=== PATIENT | female | born 1960 | race Caucasian/White ===

== ENCOUNTER 2019-07-21 06:00 | Outpatient (RCR) | payer SELFPAY | END 2019-08-16 00:01 | LOC: SPT 06:00 | PROVIDERS: Family Provider Family Medicine; Visit Provider Family Medicine | DX: H81.10 Benign paroxysmal vertigo, unspecified ear (principal) | CPT/HCPCS: 95992 ×2; 97162 ==

== ENCOUNTER 2020-08-15 11:11 | Outpatient (CLI) | payer SELFPAY ==
--- NOTE | 2020-08-15 11:18 | XR_ITS ---
WS: [id number] Exam: XR chest 2V* [id number] Date/Time of Exam: 08/15/2020 11:28 AM Reason For Exam: CHEST PAIN/ STERNUM AREA Comparison 04/22/2017. Findings: The lungs are clear and fully expanded. Costophrenic angles are sharp. No infiltrates. Bronchovascula r relief appears normal. Cardiac silhouette is unremarkable. Bony elements are intact. XR/XR chest 2V* [id number] IMPRESSION: Unremarkable chest radiograph.
== END 2020-08-15 11:12 | disposition home or self-care (01) ==
LOC: RADWPI 11:15
PROVIDERS: PCP Family Medicine; Visit Provider General Practice
DX: R07.9 Chest pain, unspecified (principal)
CPT/HCPCS: 71046

== ENCOUNTER 2020-08-28 08:04 | Outpatient (CLI) | payer OTHER, SELFPAY ==
--- NOTE | 2020-08-28 08:42 | MM_ITS ---
WS: [id number] BILATERAL SCREENING DIGITAL MAMMOGRAM WITH CAD HISTORY: SCREENING COMPARISON: 04/15/2013 Bilateral CC and MLO views submitted. Computer aided detection analyzed. Breast composition: There are scattered areas of fibroglandular density. No suspicious masses, microc alcifications or architectural distortion. Benign-appearing calcifications in the upper outer quadran t of the LEFT breast. MM/[place] [id number] IMPRESSION: BI-RADS: 2-Benign FOLLOW UP: 1 Year Follow-up
== END 2020-08-28 08:05 | disposition home or self-care (01) ==
PROVIDERS: PCP Family Medicine; Visit Provider Nurse Practitioner Family
DX: Z12.31 Encounter for screening mammogram for malignant neoplasm of breast (principal)
CPT/HCPCS: 77067

== ENCOUNTER 2020-09-19 08:14 | Outpatient (CLI) | payer SELFPAY ==
--- NOTE | 2020-09-19 08:28 | CT_ITS ---
WS: [id number] CT CHEST TECHNIQUE: Noncontrast CT of the chest with coronal and sagittal reformatted images. CLINICAL INFORMATION: SOFT TISSUE MASS ANTERIOR STERNAL AREA COMPARISON: None. DLP: 474.[address] scans at [facility] use at least one of these dose optimization techniques: automat ed exposure control; mA and/or kV adjustment per patient size (includes targeted exams where dose is matched to clinical indication); or iterative reconstruction. FINDINGS:No evidence of soft tissue mass or lesion in the area of concern in the lower sternum. Dana l underlying subcutaneous fat. No cystic or solid lesions in this location. Chronic pleural thickening in the lung apices right greater than left. Noncalcified nodule right uppe r lobe measuring 3.5 mm. Subsegmental atelectasis in the lingula. A few patchy groundglass opacities in the left lower lobe and both lower lobes medially. No mediastinal or hilar lymphadenopathy. Calcified anterior mediastinal and right hilar lymph nodes. No axillary lymphadenopathy. Adrenal glands are normal. Small esophageal hiatal hernia. Normal thoracic spine. CT/CT chest wo con [id number] IMPRESSION: 1. No evidence of soft tissue mass or lesion in the area of concern in the low er sternum. Normal underlying subcutaneous fat. No cystic or solid lesions in t his location. 2. Noncalcified 3.5 mm nodule right upper lobe. Recommend 12 month follow-up. 3. Moderate chronic emphysematous changes. 4. Faint hazy groundglass opacity in the left lower lobe and both lower lobes medially.Correlation for pneumonitis. No focal pneumonia or pleural fluid. 5. Small esophageal hiatal hernia.
== END 2020-09-19 08:15 | disposition home or self-care (01) ==
LOC: RADWPI 08:20
PROVIDERS: PCP Family Medicine; Visit Provider Orthopaedic Surgery Foot and Ankle Surgery
DX: D16.7 Benign neoplasm of ribs, sternum and clavicle (principal); K44.9 Diaphragmatic hernia without obstruction or gangrene; R91.1 Solitary pulmonary nodule
CPT/HCPCS: 71250

== ENCOUNTER → 2020-10-25 09:13 | Outpatient (BNVA) | payer SELFPAY | PROVIDERS: PCP Orthopaedic Surgery Foot and Ankle Surgery; Visit Provider Internal Medicine Pulmonary Disease | DX: R06.00 Dyspnea, unspecified (principal); Z20.822 Contact with and (suspected) exposure to COVID-19 | CPT/HCPCS: 87635 ==

== ENCOUNTER 2020-10-29 07:41 | Outpatient (CLI) | payer SELFPAY ==
--- NOTE | 2020-10-29 11:44 | PFTS_ITS ---
Date of Study:10/29/20 Date of Dictation: 10/29/2020 MECHANICS: Forced vital capacity (FVC) is normal. Forced expiratory volume in one second (FEV1) is normal. FEV1/FVC is normal. Bronchodilator study not performed. FLOW VOLUME LOOP: Normal . LUNG VOLUMES: Total lung capacity (TLC) is reduced to 66%. Residual volume (RV) is normal. Increased RV/TLC 144% suggesting mild air trapping DIFFUSING CAPACITY FOR CARBON MONOXIDE: Moderately reduced 53% . INTERPRETATION: The pulmonary function test reflects mixed pattern. The spirometry is normal. TLC 66% suggestive of mild restriction with increased RV/TLC 144% suggesting mild air trapping. Moderately reduced gas transfer. Please correlate clinically MTDD
== END 2020-10-29 07:42 | disposition home or self-care (01) ==
LOC: RT 07:42
PROVIDERS: PCP Orthopaedic Surgery Foot and Ankle Surgery; Visit Provider Internal Medicine Pulmonary Disease
DX: R06.00 Dyspnea, unspecified (principal)
CPT/HCPCS: 94010; 94726; 94729

== ENCOUNTER 2020-11-14 11:03 | Outpatient (CLI) | payer SELFPAY ==
[2020-11-17 22:03] LABS: 24 Hour Urine Volume 2125 mL; 5-HIAA, 24 Hour Urine 1.7 mg/24 h (<=6.0)
== END 2020-11-14 11:04 | disposition home or self-care (01) ==
LOC: LAB 11:06
PROVIDERS: PCP Orthopaedic Surgery Foot and Ankle Surgery; Visit Provider Internal Medicine Pulmonary Disease
DX: R23.2 Flushing (principal); R61 Generalized hyperhidrosis
CPT/HCPCS: 83497

== ENCOUNTER 2020-11-14 12:59 | Outpatient (CLI) | payer SELFPAY ==
--- NOTE | 2020-11-14 13:30 | USCV_ITS ---
Colleen Norton Age: 60 Gender: F : 1960 Exam Date: 11/14/2020 13:53 Ordering Phys: Mehdi Cagle MD Technologist: Karly Ruiz Exam Location: [facility] Indication: TO ASSESS MV REGURG, PAP, RV FUNCTION, AND TR BP: 124 / 81 HR: 76 Rhythm: Sinus Technical Quality: Adequate MEASUREMENTS (Male / Female) Normal Values 2D ECHO LV Diastolic Diameter PLAX 2.5 cm 4.2 - 5.9 / 3.9 - 5.3 cm LV Systolic Diameter PLAX 1.8 cm IVS Diastolic Thickness 1.7 cm 0.6 - 1.0 / 0.6 - 0.9 cm IVS Systolic Thickness 1.4 cm LVPW Diastolic Thickness 1.1 cm 0.6 - 1.0 / 0.6 - 0.9 cm LVPW Systolic Thickness 1.0 cm LVOT Diameter 2.0 cm LV Ejection Fraction 2D Teich 53.8 % LV Ejection Fraction MOD 2C 55.0 % LV Ejection Fraction 2C AL 60.9 % LA Diameter 3.0 cm LA Width 2.8 cm LA Height 3.5 cm RA Width 3.3 cm RA Height 3.5 cm Aorta at Sinotubular Diameter 2.6 cm M-MODE LV Diastolic Diameter MM 5.3 cm 4.2 - 5.9 / 3.9 - 5.3 cm LV Systolic Diameter MM 3.4 cm LV Ejection Fraction MM Teich 65.1 % IVS Diastolic Thickness MM 0.6 cm 0.6 - 1.0 / 0.6 - 0.9 cm IVS Systolic Thickness MM 1.1 cm LVPW Diastolic Thickness MM 0.6 cm 0.6 - 1.0 / 0.6 - 0.9 cm LVPW Systolic Thickness MM 1.0 cm Aortic Annulus Diameter 2.6 cm LA Ao Ratio MM 1.1 MV E Point Septal Separation 0.7 cm DOPPLER AV Peak Velocity 157.0 cm/s LVOT Peak Velocity 120.0 cm/s AV Area Cont Eq vti 2.1 cm squared AV Area Cont Eq pk 2.4 cm squared MV Area PHT 3.5 cm squared Mitral E to A Ratio 0.8 MV E' Velocity 34.0 cm/s Mitral E to MV E' Ratio 5.9 Mitral E to LV E' Lateral Ratio 5.7 Mitral E to LV E' Septal Ratio 6.1 TR Peak Velocity 89.0 cm/s TR Peak Gradient 3.2 mmHg Right Atrial Pressure 3.0 mmHg Pulmonary Artery Systolic Pressu 6.2 mmHg PV Peak Velocity 84.0 cm/s FINDINGS Left Ventricle Normal left ventricular size, systolic function and wall thickness, with no regional wall motion abnormalities. Left ventricular ejection fraction is estimated at 65-70 %. Normal diastolic function. Right Ventricle Normal right ventricular size and systolic function. Right ventricular systolic pressure 6.2 mmHg. Right Atrium Normal right atrial size. Right atrial pressure estimated at 3 mm Hg. Left Atrium Normal left atrial size. Mitral Valve Structurally normal mitral valve. No mitral valve stenosis. Mild mitral valve regurgitation. Aortic Valve Structurally normal trileaflet aortic valve. No aortic valve stenosis. No aortic valve regurgitation. Tricuspid Valve Structurally normal tricuspid valve. Trace tricuspid valve regurgitation. Pulmonic Valve Pulmonic valve not well visualized. No pulmonary valve stenosis. No significant pulmonary valve regurgitation. Pericardium No pericardial effusion. Aorta Normal size aortic root and proximal ascending aorta. CONCLUSIONS 1. Normal left ventricular size, systolic function and wall thickness, with no regional wall motion abnormalities. Left ventricular ejection fraction is estimated at 65-70 %. Normal diastolic function. 2. Normal right ventricular size and systolic function. 3. Mild mitral valve regurgitation. 4. Normal pulmonary artery pressure. 6. No significant change when compared to previous study dated 04/17/2014. Adriane Flores MD (Electronically Signed) Final Date: 18 November 2020 20:05 S
== END 2020-11-14 13:00 | disposition home or self-care (01) ==
PROVIDERS: PCP Orthopaedic Surgery Foot and Ankle Surgery; Visit Provider Internal Medicine Pulmonary Disease
DX: I34.0 Nonrheumatic mitral (valve) insufficiency (principal)
CPT/HCPCS: 93306

== ENCOUNTER 2020-11-29 18:13 | Emergency (ER) | payer SELFPAY ==
[2020-11-29 18:16] VITALS: BP 146/82; PULSE 106; RESP 16; TEMP 36.1; O2SAT 96; BMI 23.0
[2020-11-29 18:21] VITALS: BP 146/82; PULSE 101; RESP 16; O2SAT 96
--- NOTE | 2020-11-29 18:23 | XRR_ITS ---
PROCEDURE INFORMATION: Exam: XR Left Wrist Exam date and time: 11/29/2020 6:33 PM Age: 60 years old Clinical indication: Injury or trauma; Fall; Blunt trauma (contusions or hematomas); Wrist; Left; Additional info: Fall, wrist pain TECHNIQUE: Imaging protocol: XR Left wrist. Views: 3 or more views. COMPARISON: No relevant prior studies available. FINDINGS: Bones/joints: Normal. Soft tissues: Normal. XR/XR wrist LT min 3V* [id number] IMPRESSION: No acute findings.
--- NOTE | 2020-11-29 18:23 | XRR_ITS ---
PROCEDURE INFORMATION: Exam: XR Left Hand Exam date and time: 11/29/2020 6:33 PM Age: 60 years old Clinical indication: Injury or trauma; Fall; Blunt trauma (contusions or hematomas); Hand; Left; Additional info: Fall, hand pain TECHNIQUE: Imaging protocol: XR Left hand. Views: 3 or more views. COMPARISON: No relevant prior studies available. FINDINGS: Bones/joints: Normal. Soft tissues: Normal. XR/XR hand LT min 3V* [id number] IMPRESSION: No acute findings.
--- NOTE | 2020-11-29 18:31 | W.ED.EXTPRO ---
HPI - Extremity Problem General: Chief complaint: Extremity Injury, Upper Stated complaint: L HAND/WRIST INJURY Time Seen by Provider: 11/29/20 18:21 Source: patient Mode of arrival: ambulatory Limitations: no limitations History of Present Illness: HPI Narrative: 60 year old female presents to the ED with left hand and wrist injury -she reports was carrying items in her left hand and tripped and hit her hand and wrist against the door. He reports pain with movement of the fingers and wrist. Tetanus shot is up-to-date. She denies hitting her head or other injury such as neck pain upon exam. MD Complaint: extremity pain and extremity swelling Onset (ago): hour(s) (1) Pain Consistency: constant Location: left and upper extremity Quality: burning, aching and dull Radiation: proximal Relieving factors: immobilization and rest Exacerbating factors: range of motion Associated symptoms: Reports no associated symptoms; Deny chest pain, fever(s) or rash Review of Systems General: Reports: 10 or more systems reviewed and unremarkable except in HPI and below Const: Denies: fever(s), chills, body aches, fatigue, malaise or diaphoresis Eyes: Denies: blurry vision or eye redness ENMT: Denies: throat pain, dental pain or disequilibrium Card: Denies: chest pain, palpitations or irregular heart rhythm Resp: Denies: dyspnea, productive cough, non-productive cough or wheezing GI: Denies: abdominal pain, nausea or vomiting : Denies: difficulty voiding or dysuria Musc: Reports: joint pain, joint stiffness and limited range of motion; Denies: neck pain or back pain Skin/Breast: Denies: rash, pruritus, erythema, skin tenderness or changes in skin color Neuro: Denies: headache(s), weakness in extremities or behavioral changes Psych: Denies: anxiety, depression, sleeping more or change in appetite Garcia/Lymph: Denies: easy bruising PFSH ED PFSH: Family History Daughter Cancer lung cancer Father Pulmonary fibrosis Social History Smoking and tobacco status: never smoked Second hand smoke exposure: Yes Smoking risk assessment/counseling performed?: Yes Alcohol intake: never Lives independently: Yes Household members: spouse Housing: House Marital status: Current occupational status: retired Pets and animals: Yes History of recent travel: No Current gender identity: Female Physical Exam Const: COMMON NORMALS: no acute distress, patient oriented x3, healthy appearing and alert GENERAL APPEARANCE: cooperative, comfortable and well hydrated HENMT: COMMON NORMALS: normocephalic, Normal external nose present and moist oral mucous membranes HEAD & SCALP: normocephalic NOSE: Normal external nose present Eye: COMMON NORMALS: Equal, round and reactive pupils present and EOMs intact bilaterally GENERAL EYE: appearance normal, both eyes and all related structures PUPIL: Yes Equal, round and reactive pupils present Neck/C-Spine: COMMON NORMALS: full ROM and no lymphadenopathy GENERAL: Yes normal visual inspection and Yes trachea midline CERVICAL SPINE: Yes cervical ROM normal Lymph: LYMPHATIC: no lymphadenopathy noted Chest: COMMONS NORMALS: normal inspection of the chest Resp: COMMON NORMALS: normal respiratory effort and clear to auscultation bilaterally AUSCULTATION: clear to auscultation bilaterally Cardio: COMMON NORMALS: regular rhythm, S1 normal heart sound present and S2 normal heart sound present RHYTHM: regular rhythm HEART SOUNDS: S1 normal heart sound present and S2 normal heart sound present GI: COMMON NORMALS: Soft to palpation and non-tender INSPECTION: Yes normal to inspection PALPATION: Yes Soft to palpation : COMMON NORMALS: Yes no CVA tenderness BLADDER/KIDNEY EXAM: Yes no CVA tenderness Back/Pelvis: COMMON NORMALS: no CVA tenderness and thoracic and lumbar spine normal to inspection Extremity: COMMON NORMALS: normal to inspection, capillary refill normal and no pedal edema GENERAL: Yes normal exam except as noted LEFT UPPER EXTREMITY: Yes wrist (contusion to the medial wrist, tenderness over the radial styloid) and Yes hand & digits Left hand and digits: Yes palpation (pain to the 2nd and 3rd distal MCP), Yes ROM (full flexion/extension to all digits of the left hand) and Yes neurovascular exam (distally intact) Neuro: COMMON NORMALS: patient oriented x3 and no focal motor deficits SENSORIUM/ORIENTATION: Yes alert Psych: COMMON NORMALS: mental status grossly normal, Normal thought process present and cooperative ACTIVITY/MOTOR BEHAVIOR: Yes appropriate eye contact THOUGHT PROCESS: Normal thought process present Skin: COMMON NORMALS: no rashes or lesions noted and turgor normal GENERAL SKIN EXAM: no rashes or lesions noted, elasticity normal and turgor normal TRAUMA: abrasion (over the 2nd and 3rd distal MCP) Course Vital Signs: Vital signs: Vital Signs Temperature 97.0 F L 11/29/20 18:16 Pulse Rate 93 11/29/20 20:25 Respiratory Rate 18 11/29/20 20:25 Blood Pressure 146/84 11/29/20 20:25 Pulse Oximetry 99 11/29/20 20:25 MDM - Extremity (Nontraumatic) Imaging Data^: Xray Ortho: Radiologist's impression: [facility] [address] [place] [address] XRay Report Signed Patient: Colleen Norton Unit #: [id number] : 1960 Age/Sex: 60 / F ADM Date: 11/29/20 Loc: ER Room/Bed: Attending Dr: Ordering Provider/Ordering MD: Constance Bower Date of Service: 11/29/20 Procedure(s): XR hand LT min 3V* [id number] Accession Number(s): [id number] Report Number: [id number] PROCEDURE INFORMATION: Exam: XR Left Hand Exam date and time: 11/29/2020 6:33 PM Age: 60 years old Clinical indication: Injury or trauma; Fall; Blunt trauma (contusions or hematomas); Hand; Left; Additional info: Fall, hand pain TECHNIQUE: Imaging protocol: XR Left hand. Views: 3 or more views. COMPARISON: No relevant prior studies available. FINDINGS: Bones/joints: Normal. Soft tissues: Normal. XR/XR hand LT min 3V* [id number] IMPRESSION: No acute findings. Dictated By: Eb Sanchez Signed By: Eb Sanchez Signed Date/Time: 11/29/201918 DD/ 17 Other Imaging: Radiologist's impression: [facility] [address] [place] [address] 42486 XRay Report Signed Patient: Colleen Norton Unit #: [id number] : 1960 Age/Sex: 60 / F ADM Date: 11/29/20 Loc: ER Room/Bed: Attending Dr: Ordering Provider/Ordering MD: Constance Bower Date of Service: 11/29/20 Procedure(s): XR wrist LT min 3V* [id number] Accession Number(s): [id number] Report Number: [id number] PROCEDURE INFORMATION: Exam: XR Left Wrist Exam date and time: 11/29/2020 6:33 PM Age: 60 years old Clinical indication: Injury or trauma; Fall; Blunt trauma (contusions or hematomas); Wrist; Left; Additional info: Fall, wrist pain TECHNIQUE: Imaging protocol: XR Left wrist. Views: 3 or more views. COMPARISON: No relevant prior studies available. FINDINGS: Bones/joints: Normal. Soft tissues: Normal. XR/XR wrist LT min 3V* [id number] IMPRESSION: No acute findings. Dictated By: Eb Sanchez Signed By: Eb Sanchez Signed Date/Time: 11/29/201919 DD/ 18 Discharge Plan Discharge Patient Disposition: Home Clinical Impression: Contusion of hand Qualifiers: Encounter type: initial encounter Laterality: left Qualified Code(s): S60.222A - Contusion of left hand, initial encounter Contusion of left wrist Qualifiers: Encounter type: initial encounter Qualified Code(s): S60.212A - Contusion of left wrist, initial encounter Condition: Stable Prescriptions: No Action levothyroxine [Synthroid] 100 mcg tablet 100 mcg PO DAILY RF: 0 magnesium citrate 100 mg capsule 200 mg PO BID RF: 0 Anoro Ellipta 62.5-25 mcg/actuation blister with device 1 inh inhalation DAILY RF: 0 trazodone 50 mg tablet 50 mg PO DAILY RF: 0 benzonatate 200 mg capsule 200 mg PO TID PRNRF: 0 tramadol 50 mg tablet 50 mg PO BID PRNRF: 0 cyclobenzaprine 10 mg tablet 10 mg PO TID PRNRF: 0 Discharge Orders: Discharge ED (Routine); Ordered 11/29/20 Ordered By: Constance Bower Referrals: Himanshu Adorno MD [Primary Care Provider] - Discharge Diet: Advance as tolerated Discharge Activity: Limit activity as instructed Patient Instructions: Contusion in Adults (ED), Splint Care (ED), Abrasion (ED), Opioid Safety Activity Restrictions/Additional Instructions: cleanse wound with soap and water daily follow up with your primary care provider next week if pain continues Use the left wrist and left hand as pain will allow Tylenol/ibuprofen as needed for pain Coding Level of Care Code ED Convention Services Manager for Denys Fwalaina Exam Comprehensive
[2020-11-29] MEDS: acetaminophen 325 mg Tablet 650 MG PO (18:32)
[2020-11-29 20:25] VITALS: BP 146/84; PULSE 93; RESP 18; O2SAT 99
== END 2020-11-29 20:27 | disposition home or self-care (01) ==
PROVIDERS: Emergency Provider Nurse Practitioner Family; PCP Orthopaedic Surgery Foot and Ankle Surgery
DX: S60.212A Contusion of left wrist, initial encounter (principal); S60.222A Contusion of left hand, initial encounter; Z77.22 Contact with and (suspected) exposure to environmental tobacco smoke (acute) (chronic); W18.49XA Other slipping, tripping and stumbling without falling, initial encounter
CPT/HCPCS: 29125; 73110; 73130; 99283

== ENCOUNTER 2021-03-28 18:38 | Outpatient (REF) | payer SELFPAY ==
[2021-03-28 20:31] LABS: Thyroid Stimulating Hormone 0.05 uIU/mL (0.27-4.20)
== END 2021-03-28 18:39 | disposition home or self-care (01) ==
LOC: LAB 18:38
PROVIDERS: PCP Orthopaedic Surgery Foot and Ankle Surgery; Visit Provider Nurse Practitioner Family
DX: E03.9 Hypothyroidism, unspecified (principal)
CPT/HCPCS: 84443

== ENCOUNTER 2021-09-05 13:07 | Outpatient (CLI) | payer MEDICAID, SELFPAY ==
[2021-09-05 13:46] LABS: Basophils % 0.3 %; Eosinophils # 0.1 10^3/uL (0.0-0.8); Hematocrit 45.4 % (37.0-47.0); Hemoglobin 14.9 g/dL (11.5-15.3); Lymphocytes # 2.2 10^3/uL (0.8-4.8); Lymphocytes % 27.9 %; Mean Corpuscular HGB Conc 32.8 g/dL (30.0-36.0); Mean Corpuscular Hemoglobin 28.4 pg (28.0-34.0); Mean Corpuscular Volume 86.6 fl (81-99); Monocytes # 0.4 10^3/uL (0.2-0.9); Monocytes % 5.7 %; Neutrophils # 5.03 10^3/uL (1.8-7.7); Neutrophils % 64.8 %; Nucleated Red Blood Cells % 0 %; Platelet Count 308 10^3/cmm (130-400); Red Blood Count 5.24 10^6/uL (4.1-5.3); Red Cell Distribution Width 12.6 % (12.1-15.1); White Blood Count 7.8 10^3/uL (4.0-10.0)
[2021-09-06 11:53] LABS: Alpha 1 Antitrypsin 151 mg/dL (83-199)
[2021-09-06 14:33] LABS: Alternaria Alternata (M6) Ige <0.10 kU/L; Alternaria Class 0; Bermuda Class 0; Bermuda Grass (G2) Ige <0.10 kU/L; Cat Dander (E1) Ige <0.10 kU/L; Cat Dander Class 0; Common Ragweed (Short) (W1) Ig <0.10 kU/L; D. Farinae Class 0; Dermatophagoides Class 0; Dermatophagoides Farinae (D2) <0.10 kU/L; Dermatophagoides Pteronyssinus <0.10 kU/L; Dog Dander (E5) Ige <0.10 kU/L; Dog Dander Class 0; Elm (T8) Ige <0.10 kU/L; Elm Class 0; English Plantain (W9) Ige <0.10 kU/L; English Plantain Class 0; House Dust (Greer) (H1) Ige <0.10 kU/L; House Dust (Hollister- Stier) <0.10 kU/L; House Dust Class 0; Immunoglobulin E 16 kU/L (<OR=114); Immunoglobulin E 18 kU/L (<OR=114); Johnson Grass (G10) Ige <0.10 kU/L; Johnson Grass Cl 0; June Grass Class 0; June Grass(Kentucky Blue) (G8) <0.10 kU/L; Lamb'S Quarters (Goose Foot) <0.10 kU/L; Lamb'S Quarters Class 0; Maple (Box Elder) (T1) Ige <0.10 kU/L; Maple Class 0; Meadow Fescue (G4) Ige <0.10 kU/L; Meadow Fescue Class 0; Mucor Racemosus Class 0; Oak (T7) Ige <0.10 kU/L; Oak Class 0; Orchard Grass (Cocksfoot) (G3) <0.10 kU/L; Penicillium Class 0; Penicillium Notatum (M1) Ige <0.10 kU/L; Perennial Rye Grass (G5) Ige <0.10 kU/L; Perennial Rye Grass Class 0; Ragweeed Class 0; Rough Marsh Elder (W16) Ige <0.10 kU/L; Rough Marsh Elder Class 0; Sweet Vernal Class 0; Sweet Vernal Grass (G1) Ige <0.10 kU/L; Timothy Grass (G6) Ige <0.10 kU/L; Timothy Grass Class 0
== END 2021-09-05 13:08 | disposition home or self-care (01) ==
LOC: LAB 13:19
PROVIDERS: PCP Family Medicine; Visit Provider Internal Medicine Pulmonary Disease
DX: R06.02 Shortness of breath (principal); R91.1 Solitary pulmonary nodule; J43.9 Emphysema, unspecified
CPT/HCPCS: 36415; 82103; 82785; 85025; 86003

== ENCOUNTER 2021-10-25 07:46 | Outpatient (CLI) | payer MEDICAID, OTHER, SELFPAY ==
--- NOTE | 2021-10-25 08:06 | MM_ITS ---
WS: [id number] BILATERAL SCREENING 3D TOMOSYNTHESIS DIGITAL MAMMOGRAM WITH CAD HISTORY: SCREENING COMPARISON: 08/28/2020, 04/15/2013 Bilateral CC and MLO views submitted. Computer aided detection analyzed. Breast composition: There are scattered areas of fibroglandular density. No suspicious masses, microc alcifications or architectural distortion. Benign-appearing calcifications in the upper-outer quadran t LEFT breast. MM/[place] [id number] IMPRESSION: BI-RADS: 2-Benign FOLLOW UP: 1 Year Follow-up
== END 2021-10-25 07:47 | disposition home or self-care (01) ==
PROVIDERS: PCP Family Medicine; Visit Provider Nurse Practitioner Family
DX: Z12.31 Encounter for screening mammogram for malignant neoplasm of breast (principal)
CPT/HCPCS: 77063; 77067

== ENCOUNTER → 2021-11-05 11:39 | Outpatient (BNVA) | payer MEDICAID, SELFPAY | PROVIDERS: PCP Family Medicine; Visit Provider Internal Medicine Pulmonary Disease | DX: Z20.822 Contact with and (suspected) exposure to COVID-19 (principal) | CPT/HCPCS: 87635 ==

== ENCOUNTER 2021-11-14 07:22 | Outpatient (CLI) | payer MEDICAID, SELFPAY ==
--- NOTE | 2021-11-14 14:31 | PFTS_ITS ---
Date of Study:11/14/21 Date of Dictation: MECHANICS: Forced vital capacity (FVC) is normal. Forced expiratory volume in one second (FEV1) is normal. FEV1/FVC is normal. FLOW VOLUME LOOP: Normal. LUNG VOLUMES: Total lung capacity (TLC) is normal. Residual volume (RV) is normal. DIFFUSING CAPACITY FOR CARBON MONOXIDE: Normal. INTERPRETATION: The prebronchodilator spirometry is normal. No postbronchodilator spirometry was performed. Lung volumes are normal. Gas exchange (DLCO) is normal. MTDD
== END 2021-11-14 07:23 | disposition home or self-care (01) ==
LOC: RT 07:24
PROVIDERS: PCP Family Medicine; Visit Provider Internal Medicine Pulmonary Disease
DX: R91.1 Solitary pulmonary nodule (principal); J43.9 Emphysema, unspecified
CPT/HCPCS: 94010; 94618; 94726; 94729

== ENCOUNTER → 2021-12-20 08:25 | Outpatient (BNVA) | payer MEDICAID, SELFPAY | PROVIDERS: PCP Family Medicine; Visit Provider Internal Medicine Pulmonary Disease | DX: R91.1 Solitary pulmonary nodule (principal); J43.9 Emphysema, unspecified; R06.02 Shortness of breath; J98.4 Other disorders of lung; E03.9 Hypothyroidism, unspecified; R61 Generalized hyperhidrosis; R23.2 Flushing; R06.00 Dyspnea, unspecified | CPT/HCPCS: 36415; 84439; 84443; 99214 ==

== ENCOUNTER 2022-01-23 08:44 | Outpatient (CLI) | payer MEDICAID, SELFPAY ==
--- NOTE | 2022-01-23 09:00 | CT_ITS ---
WS: [id number] CT CHEST TECHNIQUE: Noncontrast CT of the chest with coronal and sagittal reformatted images. CLINICAL INFORMATION: follow up on lung nodule COMPARISON: CT chest September 19, 2020 DLP: [address] scans at [facility] use at least one of these dose optimization techniques: automated e xposure control; mA and/or kV adjustment per patient size (includes targeted exams where dose is matc hed to clinical indication); or iterative reconstruction. FINDINGS: Previously described 3.5 mm nodule RIGHT upper lobe is unchanged. No other suspicious pulmonary paren chymal opacities. Moderate chronic emphysematous changes. Chronic pleural thickening in the lung apic es. No mediastinal or hilar lymphadenopathy. Calcified anterior mediastinal and hilar lymph nodes. No axi llary lymphadenopathy. Small esophageal hiatal hernia. Adrenal glands are normal. CT/CT chest wo con [id number] IMPRESSION: 1. Stable tiny 3.5 mm nodule RIGHT upper lobe. 2. No other significant changes compared to previous. 3. No acute pulmonary infiltrates. 4. No other significant findings.
== END 2022-01-23 08:45 | disposition home or self-care (01) ==
LOC: RAD 08:47
PROVIDERS: PCP Family Medicine; Visit Provider Internal Medicine Pulmonary Disease
DX: J98.4 Other disorders of lung (principal); R91.1 Solitary pulmonary nodule; J43.9 Emphysema, unspecified
CPT/HCPCS: 71250

== ENCOUNTER → 2022-04-01 09:41 | Outpatient (BNVA) | payer MEDICAID, SELFPAY | PROVIDERS: PCP Family Medicine; Visit Provider Family Medicine | DX: E03.9 Hypothyroidism, unspecified (principal); I34.0 Nonrheumatic mitral (valve) insufficiency; J43.9 Emphysema, unspecified | CPT/HCPCS: 80053; 80061; 84443 ==

== ENCOUNTER → 2022-06-26 08:18 | Outpatient (BNVA) | payer MEDICAID, SELFPAY | PROVIDERS: PCP Family Medicine; Visit Provider Clinical Nurse Specialist Adult Health | DX: L29.9 Pruritus, unspecified (principal) | CPT/HCPCS: 82306; 82607 ==

== ENCOUNTER → 2022-10-06 08:11 | Outpatient (BNVA) | payer MEDICAID, SELFPAY | PROVIDERS: PCP Family Medicine; Visit Provider Family Medicine | DX: E53.8 Deficiency of other specified B group vitamins (principal); E55.9 Vitamin D deficiency, unspecified | CPT/HCPCS: 82306; 82607 ==

== ENCOUNTER → 2022-10-09 12:35 | Outpatient (BNVA) | payer MEDICAID, SELFPAY | PROVIDERS: PCP Family Medicine; Visit Provider Family Medicine | DX: R07.89 Other chest pain (principal); F39 Unspecified mood [affective] disorder; E03.9 Hypothyroidism, unspecified | CPT/HCPCS: 84443 ==

== ENCOUNTER 2022-10-10 09:38 | Outpatient (CLI) | payer MEDICAID, SELFPAY ==
--- NOTE | 2022-10-10 09:56 | XR_ITS ---
WS: [id number] BILATERAL RIBS, MULTIPLE VIEWS WITH PA CHEST HISTORY: attention anterior ribs 2-4 at sternal border. COMPARISON: Chest CT 01/23/2022, prior chest radiograph 08/15/2020 Lungs and mediastinum: Mild pulmonary hyperinflation. Mild biapical pleural thickening. No mass or pn eumonia. Small calcified RIGHT hilar lymph node. Normal size heart. Ribs: No rib fractures are identified. No destructive bone process. No callus formation or fracture. Visualized spine is negative. XR/XR ribs BI mn 4V w CXR1V [id number] IMPRESSION: No acute or chronic rib abnormalities.
== END 2022-10-10 09:39 | disposition home or self-care (01) ==
PROVIDERS: PCP Family Medicine; Visit Provider Family Medicine
DX: R07.89 Other chest pain (principal)
CPT/HCPCS: 71111

== ENCOUNTER 2022-11-10 08:25 | Outpatient (CLI) | payer MEDICAID, SELFPAY ==
--- NOTE | 2022-11-10 09:10 | XR_ITS ---
WS: [id number] Exam: XR chest 2V* [id number] Date/Time of Exam: 11/10/2022 9:26 AM Reason For Exam: f/u lung nodule, cxr required by insurance for CT PA Comparison 10/10/2022. The lungs are hyperinflated and clear. Normal cardiomediastinal silhouette. No pleural effusions. Mil d bilateral apical pleural thickening. Regional bony elements are intact. XR/XR chest 2V* [id number] IMPRESSION: 1. Pulmonary hyperinflation which may indicate obstructive lung disease. 2. No acute cardiopulmonary process.
[2022-11-10 09:27] LABS: Miscellaneous Test See Scanned Lab Rpt
== END 2022-11-10 08:26 | disposition home or self-care (01) ==
PROVIDERS: PCP Family Medicine; Visit Provider Internal Medicine Pulmonary Disease
DX: R91.1 Solitary pulmonary nodule (principal)
CPT/HCPCS: 36415; 71046

== ENCOUNTER 2023-01-26 08:59 | Outpatient (CLI) | payer MEDICAID, SELFPAY ==
--- NOTE | 2023-01-26 10:00 | CT_ITS ---
WS: [id number] CT chest wo con [id number] HISTORY: 1 year f/u Ct chest for pulmonary nodule TECHNIQUE: Axial imaging performed through the thorax. Coronal and sagittal reformats are submitted. All CT scans at [facility] use at least one of these dose optimization techniques: automated exposure control; mA and/or kV adjustment per patient size (includes targeted exams where dose is mat ched to clinical indication); or iterative reconstruction. CONTRAST: None DLP: 162.73 mGy.cm COMPARISON: 01/23/2022, 09/19/2020 Lungs and central airway: No interval change in the 4 mm noncalcified nodule RIGHT upper lobe. No new pulmonary nodule or mass. No pneumonia. Pleura: Normal. No pleural effusion. Heart and pericardium: Normal size heart with no pericardial effusion. Mediastinum and jarrett: No mediastinum or hilar adenopathy. Calcified RIGHT paratracheal lymph node. Vessels: Normal size aortic and pulmonary artery. No coronary artery calcifications. Chest wall and lower neck: No soft tissue masses. Upper abdomen: Small hiatal hernia. No adrenal mass. Osseous structures: No destructive process. CT/CT chest wo con [id number] IMPRESSION: 1. Stable 4 mm, noncalcified nodule RIGHT upper lobe since 09/19/2020. No additi onal follow-up necessary. 2. No new pulmonary nodules or adenopathy. 3. Small hiatal hernia.
== END 2023-01-26 09:00 | disposition home or self-care (01) ==
LOC: RAD 08:59
PROVIDERS: PCP Family Medicine; Visit Provider Internal Medicine Pulmonary Disease
DX: R91.1 Solitary pulmonary nodule (principal); K44.9 Diaphragmatic hernia without obstruction or gangrene
CPT/HCPCS: 71250

== ENCOUNTER → 2023-05-28 13:43 | Outpatient (BNVA) | payer MEDICAID, SELFPAY | PROVIDERS: PCP Family Medicine; Visit Provider Nurse Practitioner Family | DX: M25.561 Pain in right knee (principal) | CPT/HCPCS: 73562 ==

== ENCOUNTER → 2023-07-15 11:22 | Outpatient (BNVA) | payer MEDICAID, SELFPAY | PROVIDERS: PCP Family Medicine; Visit Provider Nurse Practitioner Family | DX: M53.3 Sacrococcygeal disorders, not elsewhere classified (principal); M54.50 Low back pain, unspecified; M54.2 Cervicalgia | CPT/HCPCS: 72040; 72100; 72220 ==

== ENCOUNTER → 2023-09-09 09:19 | Outpatient (BNVA) | payer MEDICAID, SELFPAY | PROVIDERS: PCP Family Medicine; Visit Provider Family Medicine | DX: E03.9 Hypothyroidism, unspecified (principal); K52.89 Other specified noninfective gastroenteritis and colitis | CPT/HCPCS: 80053; 83516; 84443; 85025; 86003 ==

== ENCOUNTER 2024-01-09 06:54 | Emergency (ER) | payer SELFPAY ==
[2024-01-09 07:01] VITALS: BP 128/62; PULSE 78; RESP 16; O2SAT 100
--- NOTE | 2024-01-09 07:01 | XRR_ITS ---
PROCEDURE INFORMATION: Exam: XR Left Foot Exam date and time: 01/09/2024 7:09 AM Age: 63 years old Clinical indication: Injury or trauma; Other: Nail; Puncture; Foot; Left; Without foreign body; Additional info: Injury, stepped on nail TECHNIQUE: Imaging protocol: Radiologic exam of the left foot. Views: 3 or more views. COMPARISON: No relevant prior studies available. FINDINGS: Bones/joints: No acute fracture or malalignment. Joint spaces are maintained. Soft tissues: No subcutaneous emphysema or radiopaque foreign bodies. XR/XR foot LT min 3V* [id number] IMPRESSION: No acute fracture or malalignment. No subcutaneous emphysema or radiopaque foreign bodies.
--- NOTE | 2024-01-09 07:03 | W.ED.EXTPRO ---
HPI - Extremity Problem General: Chief complaint: Extremity Injury, Lower Stated complaint: Left foot injury Time Seen by Provider: 01/09/24 06:58 Source: patient Mode of arrival: ambulatory Limitations: no limitations History of Present Illness: 63-year-old female states she had stepped on a nail yesterday did go through her shoe states she has had increased pain today some erythema to that foot. Last tetanus was in 2017 she states the pain down her sharp she rates it a 5 out of 10. Denies any other injuries Associated symptoms: Deny chest pain, fever(s) or rash Review of Systems Const: Denies: fever(s), chills, body aches or change in appetite ENMT: Denies: throat pain or dental pain Card: Denies: chest pain Resp: Denies: dyspnea GI: Denies: abdominal pain, nausea, vomiting or diarrhea Musc: Denies: neck pain or back pain Skin/Breast: Denies: rash Neuro: Denies: headache(s) All/Imm: Denies: urticaria PFSH ED PFSH: Medical History Vitamin B12 deficiency Hypothyroid Mitral valve regurgitation Lung nodule < 6cm on CT Emphysema lung Family History Daughter Cancer lung cancer Father Pulmonary fibrosis Social History Smoking and tobacco/nicotine status: never used tobacco/nicotine Second hand smoke exposure: Yes Alcohol intake: never Substance/Drug Use: never Lives independently: Yes Household members: spouse Housing: House Marital status: Current occupational status: retired Pets and animals: Yes Do you think of yourself as: Straight/Heterosexual Current gender identity: Female Physical Exam Const: COMMON NORMALS: no acute distress, patient oriented x3 and healthy appearing HENMT: COMMON NORMALS: normocephalic and atraumatic HEAD & SCALP: normocephalic and atraumatic Neck/C-Spine: COMMON NORMALS: full ROM and supple Chest: COMMONS NORMALS: normal inspection of the chest Resp: COMMON NORMALS: normal respiratory effort Extremity: COMMON NORMALS: full ROM NARRATIVE EXTREMITY EXAM: Puncture wound noted to plantar surface of left foot does have some slight erythema Neuro: COMMON NORMALS: patient oriented x3, moves all extremities and no focal motor deficits Psych: COMMON NORMALS: mental status grossly normal, Normal thought process present and cooperative THOUGHT PROCESS: Normal thought process present Skin: COMMON NORMALS: no rashes or lesions noted and no wounds GENERAL SKIN EXAM: no rashes or lesions noted Course Vital Signs: Vital signs: Vital Signs Pulse Rate 78 01/09/24 07:01 Respiratory Rate 16 01/09/24 07:01 Blood Pressure 128/62 01/09/24 07:01 Pulse Oximetry 100 01/09/24 07:01 Oxygen Delivery Me thod Room Air 01/09/24 07:01 MDM - Extremity (Nontraumatic) Medical Decision Making Patient presents for puncture wound to left foot patient was seen by podiatry Dr. Scruggs he is going to follow-up in clinic on Thursday we will start on antibiotics she has any worsening symptoms she is to return she understands agrees to plan. Medical Records I reviewed the patient's medical records. Lab Data I reviewed the patient's lab results. 01/09/24 08:10 Radiology Impressions Foot X-Ray 01/09/24 07:01 IMPRESSION: No acute fracture or malalignment. No subcutaneous emphysema or radiopaque foreign bodies. Laboratory Results WBC 5.38 10^3/uL (3.29-11.43) 01/09/24 08:10 RBC 4.26 10^6/uL (3.85-5.65) 01/09/24 08:10 Hgb 12.50 g/dL (11.27-16.99) 01/09/24 08:10 Hct 38.5 % (36-47) 01/09/24 08:10 MCV 90.4 fl (85-98) 01/09/24 08:10 MCH 29.3 pg (27-33) 01/09/24 08:10 MCHC 32.5 g/dL (30-55) 01/09/24 08:10 RDW 13.2 % (12.1-15.1) 01/09/24 08:10 Plt Count 230 10^3/cmm (157-399) 01/09/24 08:10 MPV 8.7 fL (7.4-10.4) 01/09/24 08:10 Neut % (Auto) 57.8 % 01/09/24 08:10 Lymph % (Auto) 32.9 % 01/09/24 08:10 [place] % (Auto) 7.2 % 01/09/24 08:10 Eos % (Auto) 1.5 % 01/09/24 08:10 Baso % (Auto) 0.4 % 01/09/24 08:10 Neut # (Auto) 3.11 10^3/uL (1.8-7.7) 01/09/24 08:10 Lymph # (Auto) 1.8 10^3/uL (0.8-4.8) 01/09/24 08:10 [place] # (Auto) 0.4 10^3/uL (0.2-0.9) 01/09/24 08:10 Eos # (Auto) 0.1 10^3/uL (0.0-0.8) 01/09/24 08:10 Baso # (Auto) 0.0 10^3/uL (0.0-0.1) 01/09/24 08:10 Nucleated RBC % (auto) 0 % 01/09/24 08:10 Nucleated RBCs # 0.0 /100WBC 01/09/24 08:10 ESR 7 mm/hr (0-15) 01/09/24 08:10 C-Reactive Protein 8.9 mg/L (0.0-4.9) H 01/09/24 08:10 All radiology interpretation(s) finalized by discharge Discharge Plan Discharge Patient Disposition: Home Clinical Impression: Puncture wound of foot Condition: Stable Prescriptions: New Augmentin 500-125 mg tablet 1 tab PO BID Qty: 14 0RF No Action Azo Urinary Pain Relief 99.5 mg tablet 99.5 mg PO TID PRN metronidazole 0.75 % cream 1 applic topical DAILY prednisone 20 mg tablet 20 mg PO DAILY Qty: 5 0RF triamcinolone acetonide 0.1 % cream 1 applic topical BID Qty: 30 1RF prednisone 20 mg tablet See Rx Instructions PO BID Qty: 10 0RF Rx Instructions: 2 po qday x 2 days, then 1 po qday x 8 days. prednisone 20 mg tablet 20 mg PO DAILY Qty: 14 0RF pantoprazole 40 mg tablet,delayed release (DR/EC) 40 mg PO DAILY Qty: 30 1RF fluconazole 100 mg tablet 100 mg PO DAILY Qty: 7 0RF cholecalciferol (vitamin D3) 125 mcg (5,000 unit) capsule 125 mcg PO DAILY Qty: 90 0RF mecobalamin (vitamin B12) 1,000 mcg tablet,chewable 1,000 mcg PO DAILY Qty: 90 0RF cyclobenzaprine 10 mg tablet 10 mg PO TID PRN (Reason: muscle spasm) Qty: 30 0RF levothyroxine 88 mcg capsule 88 mcg PO DAILY Qty: 90 3RF ondansetron HCl 4 mg tablet 4 mg PO Q8H PRN (Reason: nausea and vomiting) Qty: 30 3RF nitrofurantoin macrocrystal 100 mg capsule See Rx Instructions PO BID Qty: 30 3RF Rx Instructions: 1 cap po post coitus escitalopram oxalate 5 mg tablet 5 mg PO DAILY Qty: 90 1RF Discharge Orders: Discharge ED (Routine); Ordered 01/09/24 Ordered By: Michelle Pardo Referrals: Ion Scruggs DPM [Physician] - 1-3 days Marko Medina DO [Primary Care Provider] - Discharge Diet: Advance as tolerated Discharge Activity: Resume usual activity and Limit activity as instructed Patient Instructions: Puncture Wound (ED) Activity Restrictions/Additional Instructions: Instructions from Dr. Scruggs D.P.M. Please keep your left foot clean and dry and avoid getting wet when bathing. Once daily dressing change with Hydrofera Blue Heel touch for transfers at this time with postop shoe left foot Follow-up in podiatry clinic at [facility] with Dr. Scruggs January 12, 2024 at 11:30 AM Coding Level of Care Code ED Adaptive Physical Education Specialist for Chg Doug
[2024-01-09] MEDS: HYDROcodone-acetaminophen 5-325 mg Tablet 1 TAB PO (07:12)
[2024-01-09] MEDS: tetanus-dipt-pertussis 0.5 mL SDV IM (07:13)
[2024-01-09 08:00] VITALS: TEMP 36.6
[2024-01-09 08:16] LABS: Basophils % 0.4 %; Eosinophils # 0.1 10^3/uL (0.0-0.8); Eosinophils % 1.5 %; Hematocrit 38.5 % (36-47); Lymphocytes # 1.8 10^3/uL (0.8-4.8); Lymphocytes % 32.9 %; Mean Corpuscular HGB Conc 32.5 g/dL (30-55); Mean Corpuscular Hemoglobin 29.3 pg (27-33); Mean Corpuscular Volume 90.4 fl (85-98); Mean Platelet Volume 8.7 fL (7.4-10.4); Monocytes # 0.4 10^3/uL (0.2-0.9); Monocytes % 7.2 %; Neutrophils # 3.11 10^3/uL (1.8-7.7); Neutrophils % 57.8 %; Nucleated Red Blood Cells % 0 %; Platelet Count 230 10^3/cmm (157-399); Red Blood Count 4.26 10^6/uL (3.85-5.65); Red Cell Distribution Width 13.2 % (12.1-15.1); White Blood Count 5.38 10^3/uL (3.29-11.43)
--- NOTE | 2024-01-09 08:23 | P.CONIM_ITS ---
Providers/Reason For Consult 2 Consulting Physician/Specialty*: Dr. Goodman Manning/podiatry Reason for Consult*: puncture wound left foot Primary Care Provider: Marko Medina DO History of Present Illness History of Present Illness Colleen Norton is a 63 year old female stepped on a nail 01/08/2024 states that the nail was dirty, received updated tetanus in the emergency department today. Presents to the emergency department with her due to redness and pain at the left foot. Review of Systems 2 General: Reports: 10 or more systems reviewed and unremarkable except in HPI and below Const: Denies: fever(s) or chills Eyes: Denies: change in vision Card: Denies: chest pain or palpitations Resp: Denies: dyspnea or productive cough GI: Denies: abdominal pain, nausea or vomiting : Denies: flank pain Musc: Reports: extremity swelling, joint stiffness and deformity Skin/Breast: Reports: erythema, sores, changes in skin color, dry skin, nail changes and change in hair Neuro: Reports: difficulty walking; Denies: numbness in extremities or sensory changes Psych: Denies: suicidal ideation Endo: Denies: change in body appearance Garcia/Lymph: Denies: tender lymph nodes Medications/Allergies Home Medications Medication Instructions Recorded Confirmed Last Taken Type metronidazole 0.75 % topical cream 1 applic topical DAILY 12/20/21 01/12/24 Unknown History phenazopyridine 99.5 mg tablet 99.5 mg PO TID PRN 12/20/21 01/12/24 Unknown History (Azo Urinary Pain Relief) triamcinolone acetonide 0.1 % 1 applic topical BID #30 grams 06/26/22 01/12/24 Unknown Rx topical cream cholecalciferol (vitamin D3) 125 125 mcg PO DAILY #90 caps 06/27/22 01/12/24 Unknown Rx mcg (5,000 unit) capsule mecobalamin (vitamin B12) 1,000 1,000 mcg PO DAILY #90 tabs 06/27/22 01/12/24 Unknown Rx mcg chewable tablet cyclobenzaprine 10 mg tablet 10 mg PO TID PRN muscle spasm #30 05/18/23 01/12/24 Unknown Rx tabs levothyroxine 88 mcg capsule 88 mcg PO DAILY #90 caps 05/18/23 01/12/24 Unknown Rx nitrofurantoin macrocrystal 100 mg See Rx Instructions PO BID #30 caps 09/21/23 01/12/24 Unknown Rx capsule fluconazole 100 mg tablet 100 mg PO DAILY candidiasis #7 tabs 11/02/23 01/12/24 Unknown Rx escitalopram oxalate 5 mg tablet 5 mg PO DAILY mood #90 tabs 11/30/23 01/12/24 Unknown Rx amoxicillin 500 mg-potassium 1 tab PO BID #14 tabs 01/12/24 01/12/24 Unknown Rx clavulanate 125 mg tablet (Augmentin) Allergies Allergy/AdvReac Type Severity Reaction Status Date / Time codeine Allergy Unknown Verified 01/12/24 08:35 levofloxacin [From Levaquin] Allergy Unknown Verified 01/12/24 08:35 Sulfa (Sulfonamide Allergy Unknown Verified 01/12/24 08:35 Antibiotics) zolpidem [From Ambien] Allergy Unknown Verified 01/12/24 08:35 ibuprofen AdvReac Intermediate gastritis, Verified 01/12/24 08:35 GI bleeding PFSH Acute 2 PFSH: Medical History Vitamin B12 deficiency Hypothyroid Mitral valve regurgitation Lung nodule < 6cm on CT Emphysema lung Family History Daughter Cancer lung cancer Father Pulmonary fibrosis Social History Smoking and tobacco/nicotine status: never used tobacco/nicotine Second hand smoke exposure: Yes Alcohol intake: never Substance/Drug Use: never Lives independently: Yes Household members: spouse Housing: House Marital status: Current occupational status: retired Pets and animals: Yes Do you think of yourself as: Straight/Heterosexual Current gender identity: Female Vitals/I&O/Wt Last Vital Signs Pulse 78 01/09/24 07:01 Resp 16 01/09/24 07:01 BP 128/62 01/09/24 07:01 Pulse Ox 100 01/09/24 07:01 O2 Del Method Room Air 01/09/24 07:01 Weight last 48 hrs Weight 138 lb Physical Exam 2 Narrative: Patient is alert and oriented ?3 and in no acute distress. The following is a focused bilateral lower extremity exam. VASCULAR: Dorsalis pedis and posterior tibial arteries palpable +2. Capillary refill time less than 3 seconds to the distal hallux bilaterally. Calf is supple and nontender proximally and distally. No pedal edema appreciated. Pedal hair growth present. NEUROLOGICAL: Epicritic and protopathic sensations grossly intact to the lower extremities. +2 Achilles tendon reflex noted bilaterally. Negative Tinel sign upon percussion of lower extremity nerves. DERMATOLOGICAL: Puncture wound to the left plantar forefoot subsecond metatarsal head with localized erythema plantarly and dorsally without proximal lymphangitic streaking. No drainage from the wound. MUSCULOSKELETAL: Pain to palpation left plantar forefoot. No palpable mass along the course of the plantar fascia appreciated. No pain to palpation along the course of the bilateral Achilles tendon. No pain to palpation along the course posterior tibial tendon or peroneal tendons. No pain with [id number] compression of calcaneus, bilaterally. Muscle strength is 5/5 in all 3 cardinal planes pain-free without guarding to the foot and ankle, bilaterally. Data 01/09/24 08:10 A&P Assessment and plan (1) Cellulitis of left foot: (2) Puncture wound of left foot: Qualifiers: Encounter type: subsequent encounter Qualified Code(s): S91.332D - Puncture wound without foreign body, left foot, subsequent encounter Plan Dressed with Hydrofera Blue, offloaded with postop shoe. Prescribed Augmentin, close follow-up in 3 days in clinic outpatient to gauge her response to oral antibiotics and rest/elevation. She is to return to the emergency department sooner should she have any worsening of symptoms. Coding Level of Care Code Acute Code for [facility] Diagnoses Cellulitis of left foot L03.116 Puncture wound of left foot, subsequent encounter S91.332D Encounter type: subsequent encounter
[2024-01-09 08:41] LABS: C Reactive Protein 8.9 mg/L (0.0-4.9)
[2024-01-09 08:43] LABS: Erythrocyte Sedimentation Rate 7 mm/hr (0-15)
[2024-01-09] MEDS: amoxicillin-clav 500-125 mg Tablet 1 TAB PO (09:02)
[2024-01-09 09:03] VITALS: PULSE 75; RESP 16; O2SAT 98
== END 2024-01-09 09:05 | disposition home or self-care (01) ==
PROVIDERS: Emergency Provider Emergency Medicine; PCP Family Medicine
DX: S91.332A Puncture wound without foreign body, left foot, initial encounter (principal); Z77.22 Contact with and (suspected) exposure to environmental tobacco smoke (acute) (chronic); J43.9 Emphysema, unspecified; W45.0XXA Nail entering through skin, initial encounter; Z23 Encounter for immunization
CPT/HCPCS: 36415; 73630; 85025; 85651; 86140; 90471; 90715; 99284

== ENCOUNTER → 2024-01-12 08:30 | Outpatient (BNVA) | payer MEDICARE, SELFPAY | PROVIDERS: PCP Family Medicine; Visit Provider Podiatrist Foot & Ankle Surgery | DX: L03.116 Cellulitis of left lower limb; S91.332D Puncture wound without foreign body, left foot, subsequent encounter; W45.0XXD Nail entering through skin, subsequent encounter | CPT/HCPCS: 99213 ==

== ENCOUNTER → 2024-01-19 07:24 | Outpatient (BNVA) | payer MEDICARE, SELFPAY | PROVIDERS: PCP Family Medicine; Visit Provider Podiatrist Foot & Ankle Surgery | DX: L03.116 Cellulitis of left lower limb (principal); S91.332D Puncture wound without foreign body, left foot, subsequent encounter; X58.XXXD Exposure to other specified factors, subsequent encounter | CPT/HCPCS: 99213 ==

== ENCOUNTER 2024-02-13 13:16 | Emergency (ER) | payer MEDICARE, SELFPAY ==
[2024-02-13 13:22] VITALS: BP 127/84; PULSE 79; RESP 16; TEMP 37.3; O2SAT 99
--- NOTE | 2024-02-13 13:41 | XRR_ITS ---
PROCEDURE INFORMATION: Exam: XR Left Ankle Exam date and time: 02/13/2024 2:37 PM Age: 63 years old Clinical indication: Injury or trauma; Other: Hit ankle with hammer; Blunt trauma; Left TECHNIQUE: Imaging protocol: Radiologic exam of the left ankle. Views: 3 or more views. COMPARISON: CR (LOW EXM, ) 01/09/2024 7:09 AM FINDINGS: Bones/joints: Normal. Soft tissues: Normal. XR/XR ankle LT min 3V* [id number] IMPRESSION: No acute findings.
--- NOTE | 2024-02-13 14:19 | ED_ITS ---
HPI - Extremity Problem General: Chief complaint: Extremity Injury, Lower Stated complaint: left ankle hit with sledge hammer Time Seen by Provider: 02/13/24 14:03 History of Present Illness: 63-year-old female comes in today for in jury to the left ankle. Patient was working outside with a sledgehammer and excellently struck the left ankle with a blow from the hammer. Patient has some bruising and swelling noted. No obvious deformity. Review of Systems General: Reports: 10 or more systems reviewed and unremarkable except in HPI and below Musc: Reports: extremity pain PFSH ED PFSH: Medical History Vitamin B12 deficiency Hypothyroid Mitral valve regurgitation Lung nodule < 6cm on CT Emphysema lung Family History Daughter Cancer lung cancer Father Pulmonary fibrosis Social History Smoking and tobacco/nicotine status: unknown if used tobacco/nicotine Second hand smoke exposure: Yes Alcohol intake: never Substance/Drug Use: never Lives independently: Yes Household members: spouse Housing: House Marital status: Current occupational status: retired Pets and animals: Yes Do you think of yourself as: Straight/Heterosexual Current gender identity: Female Physical Exam Const: COMMON NORMALS: alert HENMT: COMMON NORMALS: normocephalic HEAD & SCALP: normocephalic Neck/C-Spine: COMMON NORMALS: full ROM Resp: COMMON NORMALS: normal respiratory effort Cardio: COMMON NORMALS: regular rate RATE: regular rate GI: COMMON NORMALS: non-tender Back/Pelvis: COMMON NORMALS: thoracic and lumbar spine normal to inspection Extremity: LEFT LOWER EXTREMITY: Yes ankle joint (Lateral bruising minimal swelling) Left ankle: Yes inspection, Yes palpation and Yes neurovascular exam Neuro: SENSORIUM/ORIENTATION: Yes alert Skin: COMMON NORMALS: turgor normal GENERAL SKIN EXAM: turgor normal Course Vital Signs: Vital signs: Vital Signs Temperature 99.2 F 02/13/24 13:22 Pulse Rate 79 02/13/24 13:22 Respiratory Rate 16 02/13/24 13:22 Blood Pressure 127/84 02/13/24 13:22 Pulse Oximetry 99 02/13/24 13:22 Oxygen Delivery Me thod Room Air 02/13/24 13:22 MDM - Extremity (Nontraumatic) Medical Decision Making 63-year-old female comes in today for injury to the left ankle. On exam patient appears nontoxic. Patient has tenderness to the lateral ankle. Pulses are intact. Cap refill is intact. No significant swelling is noted. Some mild ecchymosis is noted. Differential diagnosis fracture, contusion, sprain. X-ray notes no obvious fracture. Reviewed exam with patient with recommendations for treatment and follow-up. Patient reported understanding agreed to plan. Lab Data Radiology Impressions Ankle X-Ray 02/13/24 13:41 IMPRESSION: No acute findings. All radiology interpretation(s) finalized by discharge Discharge Plan Discharge Patient Disposition: Home Clinical Impression: Ankle contusion Qualifiers: Encounter type: initial encounter Laterality: left Qualified Code(s): S90.02XA - Contusion of left ankle, initial encounter Condition: Stable Prescriptions: No Action Azo Urinary Pain Relief 99.5 mg tablet 99.5 mg PO TID PRN metronidazole 0.75 % cream 1 applic topical DAILY triamcinolone acetonide 0.1 % cream 1 applic topical BID Qty: 30 1RF amoxicillin-pot clavulanate 875-125 mg tablet 1 tab PO BID 10 Days Qty: 20 0RF fluconazole 100 mg tablet 100 mg PO DAILY Qty: 7 0RF valacyclovir [Valtrex] 1 gram tablet 1,000 mg PO BID Qty: 14 0RF triamcinolone acetonide 0.1 % cream 1 applic topical BID Qty: 15 1RF hydrocodone-acetaminophen 5-325 mg tablet 1 tab PO Q6H PRN (Reason: pain) 7 Days Qty: 28 0RF cholecalciferol (vitamin D3) 125 mcg (5,000 unit) capsule 125 mcg PO DAILY Qty: 90 0RF mecobalamin (vitamin B12) 1,000 mcg tablet,chewable 1,000 mcg PO DAILY Qty: 90 0RF cyclobenzaprine 10 mg tablet 10 mg PO TID PRN (Reason: muscle spasm) Qty: 30 0RF levothyroxine 88 mcg capsule 88 mcg PO DAILY Qty: 90 3RF nitrofurantoin macrocrystal 100 mg capsule See Rx Instructions PO BID Qty: 30 3RF Rx Instructions: 1 cap po post coitus escitalopram oxalate 5 mg tablet 5 mg PO DAILY Qty: 90 1RF Discharge Orders: Discharge ED (Routine); Ordered 02/13/24 Ordered By: Lázaro Collier Referrals: Marko Medina DO [Primary Care Provider] - Discharge Diet: Usual diet Discharge Activity: Increase activity as tolerated Patient Instructions: Musculoskeletal Pain (ED) Activity Restrictions/Additional Instructions: Increase activity as tolerated. Use ice to help with pain. Use Tylenol and ibuprofen for further pain relief. Follow-up with primary care in 5 to 7 days for persistent or worsening symptoms. Return to ED for new concerns. Coding Level of Care Code ED Senior Maintenance Mechanic for Denys Camacho
== END 2024-02-13 15:41 | disposition home or self-care (01) ==
PROVIDERS: Emergency Provider Nurse Practitioner Family; PCP Family Medicine
DX: S90.02XA Contusion of left ankle, initial encounter (principal); J43.9 Emphysema, unspecified; Z77.22 Contact with and (suspected) exposure to environmental tobacco smoke (acute) (chronic); W27.8XXA Contact with other nonpowered hand tool, initial encounter
CPT/HCPCS: 73610; 99283

== ENCOUNTER 2024-04-01 14:10 | Outpatient (CLI) | payer MEDICARE, SELFPAY ==
--- NOTE | 2024-04-01 14:30 | MRR_ITS ---
PROCEDURE INFORMATION: Exam: MR Left Lower Extremity Without and With Contrast; Forefoot Exam date and time: 04/01/2024 3:14 PM Age: 63 years old Clinical indication: Injury or trauma; Puncture; Foot; Left; Without foreign body; Injury details: Stepped on perry nail earnest base of second toe; Additional info: Possible foreign body in forefoot, forefoot TECHNIQUE: Imaging protocol: MR of the left foot without and with contrast. Exam focused on the forefoot. Contrast material: GADOLINIUM; Contrast volume: 12 ml; Contrast route: INTRAVENOUS (IV); COMPARISON: CR XR foot LT min 3V* [id number] 01/09/2024 7:09 AM FINDINGS: Bones/joints: There is focal marrow edema of the plantar aspect of the 2nd metatarsal head raising the question of a subacute impaction injury. No evidence of displaced fracture or articular step-off. No evidence of septic joint or osteomyelitis. LIGAMENTS: Collateral ligaments of digits: Intact. TENDONS: Flexor tendons of foot: Intact. Extensor tendons of foot: Intact. Soft tissues: No evidence of foreign body. No evidence of metallic artifact. There is mild soft tissue edema along the medial aspect and plantar aspect of the 2nd toe. No fluid collection or hematoma. MR/MR foot LT wo/w con [id number] IMPRESSION: 1. No evidence of foreign body. 2. Marrow signal abnormality of the plantar aspect of the 2nd metatarsal head suspicious for subacute impaction injury.
[2024-04-01] MEDS: gadobenate dimeglumine 20 mL vial 12 ML IV (15:49)
== END 2024-04-01 14:11 | disposition home or self-care (01) ==
PROVIDERS: PCP Family Medicine; Visit Provider Podiatrist Foot & Ankle Surgery
DX: S91.332D Puncture wound without foreign body, left foot, subsequent encounter (principal); L03.116 Cellulitis of left lower limb; R93.6 Abnormal findings on diagnostic imaging of limbs; W45.0XXA Nail entering through skin, initial encounter
CPT/HCPCS: 73720; A9577

== ENCOUNTER → 2024-04-19 15:00 | Outpatient (BNVA) | payer SELFPAY | PROVIDERS: PCP Family Medicine; Visit Provider Family Medicine | DX: E03.9 Hypothyroidism, unspecified (principal) | CPT/HCPCS: 84443 ==

== ENCOUNTER → 2024-05-13 07:51 | Outpatient (BNVA) | payer SELFPAY | PROVIDERS: PCP Family Medicine; Visit Provider Family Medicine | DX: E03.9 Hypothyroidism, unspecified (principal) | CPT/HCPCS: 84443 ==

== ENCOUNTER 2024-05-27 12:10 | Inpatient (IN) | payer MEDICARE, SELFPAY ==
[2024-05-27] VITALS (11 sets, daily range): BP systolic 108–133; BP diastolic 64–75; PULSE 72–131; RESP 16–20; TEMP 36.6–36.8; O2SAT 93–100; BMI 21.6
--- NOTE | 2024-05-27 12:33 | ECG_ITS ---
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 Measurements Intervals Skippers Rate: 120 P: 76 SD: 186 QRS: 5 QRSD: 69 T: 78 QT: 286 QTc: 405 Interpretive Statements SINUS TACHYCARDIA ABNORMAL RHYTHM ECG Compared to ECG 08/31/2016 12:02:14 Sinus rhythm no longer present Electronically Signed On 05-27-2024 22:43:12 CDT by Jeri Chandler M.D. [id number]
--- NOTE | 2024-05-27 12:51 | ED_ITS ---
HPI - Abdominal Pain 2 General: Chief Complaint: Abdominal Pain Stated Complaint: severe abd pain Time Seen by Provider: 05/27/24 12:49 History of Present Illness: 64-year-old female presents emergency ro om abdominal pain began 1 hour ago. No nausea no fever. She has previously had appendectomy. Patient is complaining of right foot pain radiating into the right middle and lower part of her abdomen. She denies any hematuria no fever sweats chills mild dysuria. No vomiting or diarrhea. She was concerned she may have a gallbladder issue. Associated Symptoms: Denies chills, dysuria and fever(s) Related Data Home Medications Medication Instructions Recorded Confirmed metronidazole 0.75 % topical cream 1 applic topical DAILY 12/20/21 05/27/24 Previous Rx's Medication Instructions Recorded triamcinolone acetonide 0.1 % 1 applic topical BID #30 grams 06/26/22 topical cream mecobalamin (vitamin B12) 1,000 1,000 mcg PO DAILY #90 tabs 06/27/22 mcg chewable tablet escitalopram oxalate 20 mg tablet 20 mg PO DAILY mood #30 tabs 04/19/24 cyclobenzaprine 10 mg tablet 10 mg PO TID PRN muscle spasm #30 04/21/24 tabs levothyroxine 112 mcg capsule 112 mcg PO DAILY Thyroid #30 caps 04/24/24 ondansetron HCl 4 mg tablet 4 mg PO Q8H PRN nausea and 05/17/24 vomiting #30 tabs Allergies Allergy/AdvReac Type Severity Reaction Status Date / Time codeine Allergy Unknown Verified 05/27/24 12:43 levofloxacin [From Levaquin] Allergy Unknown Verified 05/27/24 12:43 Sulfa (Sulfonamide Allergy Unknown Verified 05/27/24 12:43 Antibiotics) zolpidem [From Ambien] Allergy Unknown Verified 05/27/24 12:43 Review of Systems 2 Const: Denies: fever(s) or chills Card: Denies: chest pain Resp: Denies: dyspnea GI: Denies: abdominal pain : Reports: flank pain; Denies: dysuria, urinary frequency or urinary urgency Musc: Denies: neck pain or back pain Skin/Breast: Denies: rash PFSH ED 2 PFSH: Medical History Vitamin B12 deficiency Hypothyroid Mitral valve regurgitation Lung nodule < 6cm on CT Emphysema lung Surgical History History of hysterectomy History of cholecystectomy Family History Daughter Cancer lung cancer Father Pulmonary fibrosis Social History Smoking and tobacco/nicotine status: never used tobacco/nicotine Second hand smoke exposure: Yes Alcohol intake: never Substance/Drug Use: never Lives independently: Yes Household members: spouse Housing: House Marital status: Current occupational status: retired Pets and animals: Yes Do you think of yourself as: Straight/Heterosexual Current gender identity: Female Physical Exam 2 Const: GENERAL APPEARANCE: cooperative ORIENTATION/CONSCIOUSNESS: Yes awake, Yes oriented to person, Yes oriented to place and Yes oriented to time HENMT: COMMON NORMALS: normocephalic, atraumatic and hearing grossly normal bilaterally HEAD & SCALP: normocephalic and atraumatic Resp: COMMON NORMALS: normal respiratory effort, No retractions, No use of accessory muscles and clear to auscultation bilaterally AUSCULTATION: clear to auscultation bilaterally Cardio: COMMON NORMALS: regular rate, regular rhythm and No murmurs present (Cardio) RATE: regular rate RHYTHM: regular rhythm GI: COMMON NORMALS: Soft to palpation and No hepatosplenomegaly present A USCULTATION: Yes normoactive bowel sounds PALPATION: Yes Soft to palpation, No Tenderness to palpation present (GI), No Guarding due to palpation present (GI) and Yes No hepatosplenomegaly present : BLADDER/KIDNEY EXAM: Yes CVA tenderness Back/Pelvis: GENERAL BACK: Yes CVA tenderness CVA tenderness: right Extremity: COMMON NORMALS: normal to inspection, capillary refill normal, no clubbing, cyanosis or edema, no calf tenderness and no pedal edema Neuro: SENSORIUM/ORIENTATION: Yes oriented to person, Yes oriented to place and Yes oriented to time Skin: COMMON NORMALS: no rashes or lesions noted GENERAL SKIN EXAM: no rashes or lesions noted Course 2 Vital Signs: Vital signs: Vital Signs Temperature 98.3 F 05/30/24 04:00 Pulse Rate 83 05/30/24 04:00 Respiratory Rate 16 05/30/24 04:42 Blood Pressure 130/76 05/30/24 04:00 Pulse Oximetry 95 05/30/24 04:00 Oxygen Delivery Me thod Room Air 05/30/24 04:00 MDM - Abdominal Pain Medical Decision Making Patient has severe right-sided pain. CT did not show any obstruction or acute findings. Clinically she has a pyelonephritis place on observation cultures done antibiotics initiated Lab Data 05/29/24 05:16 05/29/24 05:16 Labs/Radiology: Radiology Impressions Abdomen/Pelvis CT 05/27/24 13:04 IMPRESSION: No acute findings. Gallbladder Ultrasound 05/27/24 14:02 IMPRESSION: 1. No acute findings. 2. Small gallbladder polyp. Hip CT 05/27/24 17:36 IMPRESSION: 1. Unremarkable appearance of the right hip. No evidence of a fracture, malalignment, aggressive lesion or significant degenerative change. Lumbar Spine CT 05/27/24 17:36 IMPRESSION: 1. Mild lumbar spondylosis. Small disc herniations posteriorly in the lower lumbar spine which are not well characterized by CT. Suggestion of central canal narrowing at L4-L5. If there are clinical radicular symptoms consider further evaluation with MRI. 2. No evidence of a lumbar spinal fracture, malalignment or aggressive osseous lesion. Laboratory Results WBC 6.67 10^3/uL (3.29-11.43) 05/27/24 13:23 RBC 4.64 10^6/uL (3.85-5.65) 05/27/24 13:23 Hgb 13.30 g/dL (11.27-16.99) 05/27/24 13:23 Hct 40.6 % (36-47) 05/27/24 13:23 MCV 87.5 fl (85-98) 05/27/24 13:23 MCH 28.7 pg (27-33) 05/27/24 13:23 MCHC 32.8 g/dL (30-55) 05/27/24 13:23 RDW 12.4 % (12.1-15.1) 05/27/24 13:23 Plt Count 255 10^3/cmm (157-399) 05/27/24 13:23 MPV 8.9 fL (7.4-10.4) 05/27/24 13:23 Neut % (Auto) 57.9 % 05/27/24 13:23 Lymph % (Auto) 31.6 % 05/27/24 13:23 [place] % (Auto) 9.1 % 05/27/24 13:23 Eos % (Auto) 0.9 % 05/27/24 13:23 Baso % (Auto) 0.4 % 05/27/24 13:23 Neut # (Auto) 3.85 10^3/uL (1.8-7.7) 05/27/24 13:23 Lymph # (Auto) 2.1 10^3/uL (0.8-4.8) 05/27/24 13:23 [place] # (Auto) 0.6 10^3/uL (0.2-0.9) 05/27/24 13:23 Eos # (Auto) 0.1 10^3/uL (0.0-0.8) 05/27/24 13:23 Baso # (Auto) 0.0 10^3/uL (0.0-0.1) 05/27/24 13:23 Nucleated RBC % (auto) 0 % 05/27/24 13:23 Nucleated RBCs # 0.0 /100WBC 05/27/24 13:23 ESR 18 mm/hr (0-15) H 05/27/24 13:23 PT 13.70 SECONDS (12.1-14.9) 05/27/24 13:23 INR 1.01 (0.8-1.2) 05/27/24 13:23 Sodium 140 mmol/L (136-145) 05/27/24 13:23 Potassium 4.3 mmol/L (3.5-5.1) 05/27/24 13:23 Chloride 104 mmol/L (98-107) 05/27/24 13:23 Carbon Dioxide 24 mmol/L (22-29) 05/27/24 13:23 Anion Gap 16.3 (5-19) 05/27/24 13:23 BUN 18 mg/dL (8-23) 05/27/24 13:23 Creatinine 1.4 mg/dL (0.5-0.9) H 05/27/24 13:23 GFR Calculation 37.6 mL/min (90-130) L 05/27/24 13:23 Glucose 102 mg/dL (65-115) 05/27/24 13:23 Calculated Osmolality 292 mOsm/kg (285-295) 05/27/24 13:23 Lactic Acid 0.9 mmol/L (0.5-2.2) 05/27/24 13:23 Calcium 9.3 mg/dL (8.5-10.5) 05/27/24 13:23 Total Bilirubin 0.3 mg/dL (0.15-1.2) 05/27/24 13:23 AST 16 U/L (0-32) 05/27/24 13:23 ALT 8 U/L (0-33) 05/27/24 13:23 Alkaline Phosphatase 75 U/L (35-105) 05/27/24 13:23 Creatine Kinase 45 U/L (26-192) 05/27/24 13:23 C-Reactive Protein 3.0 mg/L (0.0-4.9) 05/27/24 13:23 Total Protein 7.0 g/dL (6.6-8.7) 05/27/24 13:23 Albumin 4.3 g/dL (3.5-5.2) 05/27/24 13:23 Globulin 2.7 g/dL (1.3-4.6) 05/27/24 13:23 Lipase 34 U/L (13-60) 05/27/24 13:23 Procalcitonin 0.08 ng/mL (0-0.5) 05/27/24 13:23 TSH 0.16 uIU/mL (0.27-4.20) L 05/27/24 13:23 Urine Color Yellow (Yellow) 05/27/24 15:55 Urine Appearance Clear (CLEAR) 05/27/24 15:55 Urine pH 5.5 (5-7) 05/27/24 15:55 Ur Specific [place] 1.073 (1.005-1.030) H 05/27/24 15:55 Urine Protein Negative (Negative) 05/27/24 15:55 Urine Glucose (UA) Negative (Normal) 05/27/24 15:55 Urine Ketones 1+ (Negative) H 05/27/24 15:55 Urine Blood 1+ (Negative) A 05/27/24 15:55 Urine Nitrate Negative (Negative) 05/27/24 15:55 Urine Bilirubin Negative (Negative) 05/27/24 15:55 Urine Urobilinogen 1.0 mg/dL (Negative) 05/27/24 15:55 Ur Leukocyte Esterase 1+ (Negative) A 05/27/24 15:55 Urine RBC 3-5 /hpf (0-2) 05/27/24 15:55 Urine WBC 51-100 /hpf (0-5) H 05/27/24 15:55 Ur Squamous Epith Cells 0-5 /hpf (0-5) 05/27/24 15:55 Amorphous Sediment Not Reportable 05/27/24 15:55 Urine Bacteria None seen /hpf (NONE) 05/27/24 15:55 Hyaline Casts 6.20 /lpf 05/27/24 15:55 All radiology interpretation(s) finalized by discharge Discharge Plan Discharge Patient Disposition: Admitted As Inpatient Admit Provider: Lito Rodriguez Clinical Impression: Acute pyelonephritis, RUSS (acute kidney injury) Condition: Stable Coding Level of Care Code ED Correspondence Dictator for Denys Camacho
--- NOTE | 2024-05-27 13:04 | CTR_ITS ---
PROCEDURE INFORMATION: Exam: CT Abdomen And Pelvis With Contrast Exam date and time: 05/27/2024 1:56 PM Age: 64 years old Clinical indication: Abdominal pain; Localized; Lower; Prior surgery; Surgery date: 6+ months; Surgery type: Appy; Additional info: Abd pain TECHNIQUE: Imaging protocol: Computed tomography of the abdomen and pelvis with contrast. Radiation optimization: All CT scans at this facility use at least one of these dose optimization techniques: automated exposure control; mA and/or kV adjustment per patient size (includes targeted exams where dose is matched to clinical indication); or iterative reconstruction. Contrast material: OMNI 350; Contrast volume: 75 ml; Contrast route: INTRAVENOUS (IV); COMPARISON: CR XR sacrum coccyx min 2V [id number] 07/15/2023 11:28 AM RADIATION DOSE METRICS: Total DLP (mGy-cm): 380.87 FINDINGS: Liver: Normal. No mass. Gallbladder and biliary ducts: Normal. No calcified stones. No ductal dilation. Pancreas: Normal. No ductal dilation. Spleen: Normal. No splenomegaly. Adrenal glands: Normal. No mass. Kidneys and ureters: Normal. No hydronephrosis. Stomach and bowel: Unremarkable. No obstruction. No mucosal thickening. Appendix: No evidence of appendicitis. Intraperitoneal space: Unremarkable. No free air. No significant fluid collection. Vasculature: Unremarkable. No abdominal aortic aneurysm. Lymph nodes: Unremarkable. No enlarged lymph nodes. Urinary bladder: Unremarkable as visualized. Reproductive: Unremarkable as visualized. Bones/joints: Unremarkable. No acute fracture. Soft tissues: Unremarkable. CT/CT abdomen pelvis w con* [id number] IMPRESSION: No acute findings.
[2024-05-27 13:27] LABS: Basophils % 0.4 %; Eosinophils # 0.1 10^3/uL (0.0-0.8); Eosinophils % 0.9 %; Hematocrit 40.6 % (36-47); Lymphocytes # 2.1 10^3/uL (0.8-4.8); Lymphocytes % 31.6 %; Mean Corpuscular HGB Conc 32.8 g/dL (30-55); Mean Corpuscular Hemoglobin 28.7 pg (27-33); Mean Corpuscular Volume 87.5 fl (85-98); Mean Platelet Volume 8.9 fL (7.4-10.4); Monocytes # 0.6 10^3/uL (0.2-0.9); Monocytes % 9.1 %; Neutrophils # 3.85 10^3/uL (1.8-7.7); Neutrophils % 57.9 %; Nucleated Red Blood Cells % 0 %; Platelet Count 255 10^3/cmm (157-399); Red Blood Count 4.64 10^6/uL (3.85-5.65); Red Cell Distribution Width 12.4 % (12.1-15.1); White Blood Count 6.67 10^3/uL (3.29-11.43)
[2024-05-27] MEDS: ondansetron 2 mg/ML SDV 2 mL 4 MG IVP (13:32)
[2024-05-27] MEDS: morphine 4 mg/mL SDV 1 mL IVP ×2 (13:32→17:18)
[2024-05-27 13:43] LABS: Lactic Sepsis W/Reflex 0.9 mmol/L (0.5-2.2)
[2024-05-27 13:44] LABS: Alanine Aminotransferase 8 U/L (0-33); Albumin Level 4.3 g/dL (3.5-5.2); Alkaline Phosphatase 75 U/L (35-105); Anion Gap 16.3 (5-19); Aspartate Amino Transferase 16 U/L (0-32); Blood Urea Nitrogen 18 mg/dL (8-23); Calcium 9.3 mg/dL (8.5-10.5); Carbon Dioxide 24 mmol/L (22-29); Chloride 104 mmol/L (98-107); Creatinine Clr Calc Pharmacy 37.3733; Globulin 2.7 g/dL (1.3-4.6); Glomerular Filtration Rate 37.6 mL/min (90-130); Glucose 102 mg/dL (65-115); Lipase 34 U/L (13-60); Osmolality Calculated 292 mOsm/kg (285-295); Potassium 4.3 mmol/L (3.5-5.1); Sodium 140 mmol/L (136-145); Total Bilirubin 0.3 mg/dL (0.15-1.2)
[2024-05-27] MEDS: iohexol 350 mg/mL 500 mL Btl (per mL) IV (14:01)
--- NOTE | 2024-05-27 14:02 | USR_ITS ---
PROCEDURE INFORMATION: Exam: US Abdomen, Limited; Right Upper Quadrant Exam date and time: 05/27/2024 3:00 PM Age: 64 years old Clinical indication: Abdominal pain; Additional info: Ruq abd pain TECHNIQUE: Imaging protocol: Real time ultrasound of the abdomen with image documentation. Limited exam focused on the right upper quadrant. COMPARISON: CT abdomen pelvis w con* [id number] 05/27/2024 1:56 PM FINDINGS: Liver: Normal. No masses. Gallbladder: 4 mm polyp. No gallstones. There is no gallbladder wall thickening. Biliary ducts: Normal. No stones. No dilation. Pancreas: Obscured. Right kidney: Normal. No mass. No hydronephrosis. US/US gall bladder [id number] IMPRESSION: 1. No acute findings. 2. Small gallbladder polyp.
[2024-05-27 16:05] LABS: Bilirubin Urine Negative (Negative); Blood Urine 1+ (Negative); Glucose Urine UA Negative (Normal); Ketones Urine 1+ (Negative); Leukocyte Esterase Urine 1+ (Negative); Nitrate Urine Negative (Negative); Protein Urine Negative (Negative); Urine Appearance Clear (CLEAR); Urine Color Yellow (Yellow); pH Urine 5.5 (5-7)
[2024-05-27 16:07] LABS: Add Urine Microscopic? YES; Bacteria Urine None Seen /hpf; Squamous Epithelial Cell Urine 0-5 /hpf (0-5); WBC Urine 51-100 /hpf (0-5)
[2024-05-27 16:19] LABS: Specific Gravity, Urine 1.073 (1.005-1.030)
[2024-05-27 16:21] LABS: Add Urine Culture? Yes
[2024-05-27] MEDS: cefTRIAXone 1,000 mg SDV 1000 MG IVP (17:00)
[2024-05-27] MEDS: sodium chloride 0.9% 1,000 ML 999 ML IV (17:00)
[2024-05-27] MEDS: ketorolac 30 mg/mL INJ IVP (17:18)
--- NOTE | 2024-05-27 17:36 | CTR_ITS ---
PROCEDURE INFORMATION: Exam: CT Lumbar Spine Without Contrast Exam date and time: 05/27/2024 5:54 PM Age: 64 years old Clinical indication: Prior surgery; Surgery date: 6+ months; Surgery type: Gb. Appy. Hysterectomy. Patient HX: C/O low back pain. No injury. TECHNIQUE: Imaging protocol: Computed tomography of the lumbar spine without contrast. Radiation optimization: All CT scans at this facility use at least one of these dose optimization techniques: automated exposure control; mA and/or kV adjustment per patient size (includes targeted exams where dose is matched to clinical indication); or iterative reconstruction. COMPARISON: CR XR lumbar spine 2-3V* [id number] 07/15/2023 11:37 AM RADIATION DOSE METRICS: Total DLP (mGy-cm): 430.62 FINDINGS: Bones/joints: Normal lumbar spinal alignment without listhesis. Vertebral body heights are maintained without compression deformity. There is no evidence of increased density within the spinal canal to suggest hemorrhage. There are small posterior disc herniations suggested at L3 through S1 although not well visualized by CT. Possible mild central canal stenosis at L4-L5. Minimal scattered endplate degenerative changes throughout the lumbar spine. No fracture or aggressive osseous lesion is seen. Intraperitoneal space: The visualized abdominal solid organs and hollow viscera are unremarkable. Vasculature: Trace atherosclerosis in the abdominal aorta. Soft tissues: The visualized superficial soft tissues have a normal appearance. CT/CT lumbar spine wo con* [id number] IMPRESSION: 1. Mild lumbar spondylosis. Small disc herniations posteriorly in the lower lumbar spine which are not well characterized by CT. Suggestion of central canal narrowing at L4-L5. If there are clinical radicular symptoms consider further evaluation with MRI. 2. No evidence of a lumbar spinal fracture, malalignment or aggressive osseous lesion.
--- NOTE | 2024-05-27 17:36 | CTR_ITS ---
PROCEDURE INFORMATION: Exam: CT Right Lower Extremity, Hip Exam date and time: 05/27/2024 5:57 PM Age: 64 years old Clinical indication: Right; Patient HX: C/O RT hip pain. No injury. TECHNIQUE: Imaging protocol: CT of the right lower extremity without contrast was performed. Exam focused on the hip. Radiation optimization: All CT scans at this facility use at least one of these dose optimization techniques: automated exposure control; mA and/or kV adjustment per patient size (includes targeted exams where dose is matched to clinical indication); or iterative reconstruction. COMPARISON: CT abdomen pelvis w con* [id number] 05/27/2024 1:56 PM RADIATION DOSE METRICS: Total DLP (mGy-cm): 271.34 FINDINGS: Bones/joints: Normal femoroacetabular alignment joint space. No evidence of a hip fracture. No aggressive osseous lesion or significant degenerative change. Minimal enthesopathy at the greater trochanter. Incidental small bone island within the femoral neck measuring approximately 6 mm. Soft tissues: The visualized superficial soft tissues have a normal appearance. Urinary bladder: Excreted contrast is partially seen in the urinary bladder. Visualized abdominal structures are otherwise unremarkable. CT/CT hip RT wo con* [id number] IMPRESSION: 1. Unremarkable appearance of the right hip. No evidence of a fracture, malalignment, aggressive lesion or significant degenerative change.
--- NOTE | 2024-05-27 17:37 | P.HP_ITS ---
Providers/Chief Complaint 2 Primary Care Provider: Marko Medina DO Chief Complaint: severe abd pain History of Present Illness Colleen Norton is a 64 year old female with a past medical history of recurrent UTIs, DVT, but has not had a UTI in over 2 years, history of hypothyroidism, who presents to [facility] due to right sided back pain, flank pain, right lower abdominal pain, right inguinal pain, right hip pain. Patient tells me that for the last few days she has had some fatigue and malaise, no fevers, but intermittent chills, no nausea, no vomiting, denies any dysuria, no hematuria. She tells me that yesterday she was mowing the lawn, when she hit a pothole and she felt a jarring sensation, on the right side of her hip, back, inguinal area but it did not really bother her she tells me. She tells me that she has been helping her family members around the house, helping with painting, so she has been taping the floor, and she has been getting up and down to tape, she tells me that this morning, when she got up she suddenly felt a severe pain sensation in her right hip, right side of her back, right flank, right inguinal region, right abdomen, did not radiate down her lower extremity, no paresthesias no urinary, no bowel incontinence no saddle paresthesia. But the pain was so severe, she is fearful of moving due to severe pain, potentially could be a muscle spasm. Currently she has received doses of morphine but continues to have severe pain primarily in the right hip, right inguinal region, right side of her back right flank, right lower abdomen. CT scan of abdomen pelvis no acute findings, UA with evidence of UTI, concerns for pyelonephritis with RUSS, hospitalist team was called for admission Review of Systems 2 Const: Reports: chills, fatigue and malaise Card: Denies: chest pain Resp: Denies: dyspnea : Reports: flank pain Neuro: Denies: headache(s) Medications/Allergies Home Medications Medication Instructions Recorded Confirmed Last Taken Type metronidazole 0.75 % topical cream 1 applic topical DAILY 12/20/21 05/27/24 Unknown History triamcinolone acetonide 0.1 % 1 applic topical BID #30 grams 06/26/22 05/27/24 Unknown Rx topical cream mecobalamin (vitamin B12) 1,000 1,000 mcg PO DAILY #90 tabs 06/27/22 05/27/24 05/26/24 Rx mcg chewable tablet escitalopram oxalate 20 mg tablet 20 mg PO DAILY mood #30 tabs 04/19/24 05/27/24 05/26/24 Rx cyclobenzaprine 10 mg tablet 10 mg PO TID PRN muscle spasm #30 04/21/24 05/27/24 Unknown Rx tabs levothyroxine 112 mcg capsule 112 mcg PO DAILY Thyroid #30 caps 04/24/24 05/27/24 05/27/24 Rx ondansetron HCl 4 mg tablet 4 mg PO Q8H PRN nausea and 05/17/24 05/27/24 Unknown Rx vomiting #30 tabs Allergies Allergy/AdvReac Type Severity Reaction Status Date / Time codeine Allergy Unknown Verified 05/27/24 12:43 levofloxacin [From Levaquin] Allergy Unknown Verified 05/27/24 12:43 Sulfa (Sulfonamide Allergy Unknown Verified 05/27/24 12:43 Antibiotics) zolpidem [From Ambien] Allergy Unknown Verified 05/27/24 12:43 PFSH Acute 2 PFSH: Medical History (Updated 05/27/24 @ 17:42 by Lito Rodriguez MD) Vitamin B12 deficiency Hypothyroid Mitral valve regurgitation Lung nodule < 6cm on CT Emphysema lung Surgical History (Updated 05/27/24 @ 17:40 by Lito Rodriguez MD) History of hysterectomy History of cholecystectomy Family History Daughter Cancer lung cancer Father Pulmonary fibrosis Social History Smoking and tobacco/nicotine status: never used tobacco/nicotine Second hand smoke exposure: Yes Alcohol intake: never Substance/Drug Use: never Lives independently: Yes Household members: spouse Housing: House Marital status: Current occupational status: retired Pets and animals: Yes Do you think of yourself as: Straight/Heterosexual Current gender identity: Female Vitals/I&O/Wt Last Vital Signs Temp 98.2 F 05/27/24 12:33 Pulse 82 05/27/24 16:33 Resp 16 05/27/24 16:33 BP 129/70 05/27/24 16:33 Pulse Ox 96 05/27/24 16:33 O2 Del Method Room Air 05/27/24 16:33 Weight last 48 hrs Weight 60.781 kg Physical Exam 2 Const: COMMON NORMALS: no acute distress and patient oriented x3 HENMT: COMMON NORMALS: normocephalic HEAD & SCALP: normocephalic Eye: COMMON NORMALS: Equal, round and reactive pupils present Neck/C-Spine: COMMON NORMALS: no JVD Resp: COMMON NORMALS: normal respiratory effort, No retractions, No use of accessory muscles and clear to auscultation bilaterally AUSCULTATION: clear to auscultation bilaterally Cardio: COMMON NORMALS: regular rate, regular rhythm, S1 normal heart sound present and S2 normal heart sound present RATE: regular rate RHYTHM: r egular rhythm HEART SOUNDS: S1 normal heart sound present and S2 normal heart sound present GI: COMMON NORMALS: Normal to inspection, nondistended, normoactive bowel sounds present, Soft to palpation and non-tender Extremity: COMMON NORMALS: no pedal edema NARRATIVE EXTREMITY EXAM: On examination, patient has significant right flank tenderness, room tenderness in the right upper quadrant, right lower quadrant of the abdomen, no guarding, no rebound, rigidity, she does have right sided back pain, exquisite tenderness to palpation she has right inguinal tenderness she has right hip tenderness, pain to palpation, pain to movement of the right hip Neuro: COMMON NORMALS: patient oriented x3, CN's II-XII intact bilaterally and moves all extremities Psych: COMMON NORMALS: mental status grossly normal Data 05/27/24 13:23 05/27/24 13:23 A&P Assessment and plan (1) Acute pyelonephritis: (2) Right-sided back pain: (3) RUSS (acute kidney injury): Plan Acute kidney injury ? IV fluids Acute pyelonephritis with right-sided flank pain -Start Zosyn, due to history of multiple UTIs in the past Right sided pain -Her pain does seem musculoskeletal in nature potential spasm -Will do a CT of her right hip, CT of her lumbar spine -Due to intractable pain start Dilaudid 1 mg IV push every 4 hours as needed for pain -Flexeril as needed for muscle spasms Full code Lovenox for DVT prophylaxis Attestations 2 Medical Necessity Statement*: Patient requires hospitalization, inpatient, greater than 2 midnights, for RUSS, acute pyelonephritis, UTI, right-sided back pain Coding Level of Care Code Acute Code for g Fwd Diagnoses Acute pyelonephritis N10 Right-sided back pain M54.9 RUSS (acute kidney injury) N17.9
[2024-05-27 18:02] LABS: Erythrocyte Sedimentation Rate 18 mm/hr (0-15)
[2024-05-27 18:16] LABS: Creatine Phosphokinase 45 U/L (26-192)
[2024-05-27 18:23] LABS: Procalcitonin 0.08 ng/mL (0-0.5)
[2024-05-27 18:46] LABS: INR 1.01 (0.8-1.2)
[2024-05-27 21:00] LABS: Thyroid Stimulating Hormone 0.16 uIU/mL (0.27-4.20)
[2024-05-27] MEDS: HYDROmorphone 1 mg/mL INJ 1 mL IVP (21:09)
[2024-05-27] MEDS: enoxaparin 40 mg/0.4 mL Syringe SUBCUT (21:09)
[2024-05-27] MEDS: sodium chloride 0.9% 1,000 ML 75 ML IV (21:09)
[2024-05-27] MEDS: pantoprazole 40 mg SDV IVP (21:09)
[2024-05-27] MEDS: piperacillin-tazobactam 3.375 GM in sodium chloride 0.9% (plus) 50 ML IV (21:09)
[2024-05-28] VITALS (9 sets, daily range): BP systolic 106–116; BP diastolic 60–68; PULSE 73–90; RESP 15–18; TEMP 36.4–36.8; O2SAT 90–96
[2024-05-28] MEDS: ondansetron 2 mg/ML SDV 2 mL 4 MG IVP (02:29)
[2024-05-28 04:09] LABS: Basophils % 0.6 %; Eosinophils # 0.1 10^3/uL (0.0-0.8); Eosinophils % 2.3 %; Hematocrit 34.7 % (36-47); Lymphocytes # 2.3 10^3/uL (0.8-4.8); Lymphocytes % 43.9 %; Mean Corpuscular HGB Conc 32.3 g/dL (30-55); Mean Corpuscular Hemoglobin 29.3 pg (27-33); Mean Corpuscular Volume 90.8 fl (85-98); Mean Platelet Volume 9.2 fL (7.4-10.4); Monocytes # 0.5 10^3/uL (0.2-0.9); Monocytes % 9.4 %; Neutrophils # 2.32 10^3/uL (1.8-7.7); Neutrophils % 43.6 %; Nucleated Red Blood Cells % 0 %; Platelet Count 194 10^3/cmm (157-399); Red Blood Count 3.82 10^6/uL (3.85-5.65); Red Cell Distribution Width 12.5 % (12.1-15.1); White Blood Count 5.31 10^3/uL (3.29-11.43)
[2024-05-28 04:35] LABS: Anion Gap 11.9 (5-19); Blood Urea Nitrogen 15 mg/dL (8-23); Carbon Dioxide 25 mmol/L (22-29); Chloride 106 mmol/L (98-107); Creatinine Clr Calc Pharmacy 59.5628; Glomerular Filtration Rate 62.6 mL/min (90-130); Glucose 95 mg/dL (65-115); Osmolality Calculated 289 mOsm/kg (285-295); Potassium 3.9 mmol/L (3.5-5.1); Sodium 139 mmol/L (136-145)
[2024-05-28] MEDS: piperacillin-tazobactam 3.375 GM in sodium chloride 0.9% (plus) 50 ML IV ×3 (04:50→20:33)
[2024-05-28] MEDS: acetaminophen 325 mg Tablet 650 MG PO ×2 (04:55→17:04)
[2024-05-28] MEDS: levothyroxine 112 mcg Tablet PO (08:44)
[2024-05-28] MEDS: escitalopram 10 mg Tablet 20 MG PO (08:44)
[2024-05-28] MEDS: HYDROmorphone 1 mg/mL INJ 1 mL IVP ×2 (11:44→17:04)
[2024-05-28] MEDS: dexamethasone 10 mg/mL INJ IVP (11:44)
--- NOTE | 2024-05-28 15:20 | P.PN_ITS ---
Subjective 2 Subjective: Patient was seen this morning, her pain is more under control but continues to have some significant pain upon movement, discussed her lumbar spine CT scan, will get her pain under control start anti-inflammatory medications, discussed getting up to a chair, working with PT OT, she is agreeable Vitals/I&O/Wt Last Vital Signs Temp 98.1 F 05/28/24 12:00 Pulse 77 05/28/24 12:00 Resp 15 05/28/24 12:00 BP 116/65 05/28/24 12:00 Pulse Ox 90 05/28/24 12:00 O2 Del Method Room Air 05/28/24 12:00 05/28/24 05/28/24 05/28/24 06:59 14:59 22:59 Intake Total 170 / 1290 1290 / 1290 Balance 170 / 1290 1290 / 1290 Weight last 48 hrs Weight 65.589 kg Weight 64.455 kg Weight 60.781 kg Weight 60.781 kg Physical Exam 2 Const: COMMON NORMALS: no acute distress and patient oriented x3 Resp: COMMON NORMALS: normal respiratory effort, No retractions, No use of accessory muscles and clear to auscultation bilaterally AUSCULTATION: clear to auscultation bilaterally Cardio: COMMON NORMALS: regular rate, regular rhythm, S1 normal heart sound present and S2 normal heart sound present RATE: regular rate RHYTHM: r egular rhythm HEART SOUNDS: S1 normal heart sound present and S2 normal heart sound present GI: COMMON NORMALS: Normal to inspection, nondistended, normoactive bowel sounds present and non-tender Extremity: COMMON NORMALS: no pedal edema Neuro: COMMON NORMALS: patient oriented x3 Psych: COMMON NORMALS: mental status grossly normal Data 05/28/24 03:34 05/28/24 03:34 Micro: Microbiology 05/27/24 17:34 Blood Culture - Preliminary Blood SPECIMEN COLLECTED 05/27/24 17:34 Blood Culture - Preliminary Blood SPECIMEN COLLECTED A&P Assessment and plan (1) Acute pyelonephritis: (2) Right-sided back pain: (3) RUSS (acute kidney injury): (4) Lumbar radiculopathy, acute: Plan Acute kidney injury ? IV fluids Acute pyelonephritis with right-sided flank pain -Start Zosyn, due to history of multiple UTIs in the past Right sided pain -Lumbar radiculopathy CT/CT lumbar spine wo con* [id number] IMPRESSION: 1. Mild lumbar spondylosis. Small disc herniations posteriorly in the lower lumbar spine which are not well characterized by CT. Suggestion of central canal narrowing at L4-L5. If there are clinical radicular symptoms consider further evaluation with MRI. 2. No evidence of a lumbar spinal fracture, malalignment or aggressive osseous lesion. -Her pain does seem musculoskeletal in nature potential spasm -Decadron 10 mg IV push once -Due to intractable pain start Dilaudid 1 mg IV push every 4 hours as needed for pain -Flexeril as needed for muscle spasms Intractable pain Full code Lovenox for DVT prophylaxis Patient requires hospitalization for acute pyelonephritis, right-sided flank pain, lumbar radiculopathy Attestations 2 Medical Necessity Statement*: Patient requires hospitalization for UTI, pyelonephritis, lumbar radiculopathy, intractable pain Diagnoses Acute pyelonephritis N10 Right-sided back pain M54.9 RUSS (acute kidney injury) N17.9 Lumbar radiculopathy, acute M54.16
[2024-05-28] MEDS: enoxaparin 40 mg/0.4 mL Syringe SUBCUT (20:32)
[2024-05-28] MEDS: pantoprazole 40 mg SDV IVP (20:32)
[2024-05-29] VITALS (12 sets, daily range): BP systolic 102–145; BP diastolic 56–75; PULSE 68–79; RESP 14–18; TEMP 36.6–37; O2SAT 93–99
[2024-05-29] MEDS: piperacillin-tazobactam 3.375 GM in sodium chloride 0.9% (plus) 50 ML IV (05:07)
[2024-05-29 05:38] LABS: Basophils % 0.3 %; Eosinophils # 0.2 10^3/uL (0.0-0.8); Eosinophils % 2.6 %; Hematocrit 38.8 % (36-47); Lymphocytes # 1.5 10^3/uL (0.8-4.8); Lymphocytes % 26.1 %; Mean Corpuscular HGB Conc 32.5 g/dL (30-55); Mean Corpuscular Hemoglobin 29.6 pg (27-33); Mean Corpuscular Volume 91.3 fl (85-98); Monocytes # 0.5 10^3/uL (0.2-0.9); Monocytes % 7.7 %; Nucleated Red Blood Cells % 0 %; Platelet Count 241 10^3/cmm (157-399); Red Blood Count 4.25 10^6/uL (3.85-5.65); Red Cell Distribution Width 12.2 % (12.1-15.1); White Blood Count 5.87 10^3/uL (3.29-11.43)
[2024-05-29 06:08] LABS: Blood Urea Nitrogen 9 mg/dL (8-23); Calcium 8.6 mg/dL (8.5-10.5); Carbon Dioxide 22 mmol/L (22-29); Chloride 105 mmol/L (98-107); Creatinine Clr Calc Pharmacy 65.4033; Glomerular Filtration Rate 71.8 mL/min (90-130); Glucose 110 mg/dL (65-115); Osmolality Calculated 285 mOsm/kg (285-295); Sodium 138 mmol/L (136-145)
[2024-05-29] MEDS: acetaminophen 325 mg Tablet 650 MG PO (08:55)
[2024-05-29] MEDS: ondansetron 2 mg/ML SDV 2 mL 4 MG IVP (08:55)
[2024-05-29] MEDS: escitalopram 10 mg Tablet 20 MG PO (08:55)
[2024-05-29] MEDS: levothyroxine 112 mcg Tablet PO (08:55)
[2024-05-29] MEDS: HYDROmorphone 1 mg/mL INJ 1 mL IVP (08:55)
[2024-05-29] MEDS: cyclobenzaprine 10 mg Tablet PO ×2 (10:39→19:39)
[2024-05-29] MEDS: dexamethasone 10 mg/mL INJ 6 MG IVP (10:39)
[2024-05-29] MEDS: diphenhydrAMINE 50 mg/mL SDV 1mL 25 MG IVP (10:39)
--- NOTE | 2024-05-29 11:55 | P.PN_ITS ---
Subjective 2 Subjective: Patient was seen this morning, no fevers, chills, no cough she continues to have pain upon ambulation but she feels she can ambulate more, she does continue to feel pain while she is in bed, Vitals/I&O/Wt Last Vital Signs Temp 98.0 F 05/29/24 09:18 Pulse 69 05/29/24 09:53 Resp 18 05/29/24 09:53 BP 145/74 05/29/24 09:18 Pulse Ox 96 05/29/24 09:53 O2 Del Method Room Air 05/29/24 09:53 05/28/24 05/29/24 05/29/24 22:59 06:59 14:59 Intake Total 50 / 1340 50 / 1390 50 / 50 Balance 50 / 1340 50 / 1390 50 / 50 Weight last 48 hrs Weight 60.781 kg Weight 65.589 kg Weight 64.455 kg Weight 60.781 kg Weight 60.781 kg Physical Exam 2 Const: COMMON NORMALS: no acute distress and patient oriented x3 Resp: COMMON NORMALS: normal respiratory effort, No retractions, No use of accessory muscles and clear to auscultation bilaterally AUSCULTATION: clear to auscultation bilaterally Cardio: COMMON NORMALS: regular rate, regular rhythm, S1 normal heart sound present and S2 normal heart sound present RATE: regular rate RHYTHM: r egular rhythm HEART SOUNDS: S1 normal heart sound present and S2 normal heart sound present GI: COMMON NORMALS: Normal to inspection, nondistended, normoactive bowel sounds present and non-tender Extremity: COMMON NORMALS: no pedal edema Neuro: COMMON NORMALS: patient oriented x3 Psych: COMMON NORMALS: mental status grossly normal Data 05/29/24 05:16 05/29/24 05:16 Micro: Microbiology 05/27/24 15:55 Urine Culture - Final Urine,Clean Catch 05/27/24 17:34 Blood Culture - Preliminary Blood NEGATIVE TO DATE 05/27/24 17:34 Blood Culture - Preliminary Blood NEGATIVE TO DATE A&P Assessment and plan (1) Acute pyelonephritis: (2) Right-sided back pain: (3) RUSS (acute kidney injury): (4) Lumbar radiculopathy, acute: Plan Acute kidney injury ? If IV antibiotics Acute pyelonephritis with right-sided flank pain - Zosyn, due to history of multiple UTIs in the past ? Blood cultures remain negative, transitioned off Zosyn to Rocephin Right sided pain -Lumbar radiculopathy CT/CT lumbar spine wo con* [id number] IMPRESSION: 1. Mild lumbar spondylosis. Small disc herniations posteriorly in the lower lumbar spine which are not well characterized by CT. Suggestion of central canal narrowing at L4-L5. If there are clinical radicular symptoms consider further evaluation with MRI. 2. No evidence of a lumbar spinal fracture, malalignment or aggressive osseous lesion. -Her pain does seem musculoskeletal in nature potential spasm -Decadron 10 mg IV push once -Transition off Dilaudid to oxycodone 5 mg p.o. every 6 hours as needed ? Due to persistent neuropathic pain add on gabapentin 200 mg p.o. twice daily -Flexeril as needed for muscle spasms ? 1 dose of Decadron today transition to prednisone p.o. tomorrow Intractable pain Full code Lovenox for DVT prophylaxis Patient requires hospitalization for IV antibiotics, pain control, PT OT Attestations 2 Medical Necessity Statement*: Patient requires hospitalization for RUSS, UTI, right-sided pain, lumbar radiculopathy Diagnoses Acute pyelonephritis N10 Right-sided back pain M54.9 RUSS (acute kidney injury) N17.9 Lumbar radiculopathy, acute M54.16
[2024-05-29] MEDS: gabapentin 100 mg Capsule 200 MG PO ×2 (12:06→17:03)
[2024-05-29 12:42] LABS: INR 1.06 (0.8-1.2)
[2024-05-29] MEDS: oxyCODONE 5 mg IR Tab/Cap PO ×2 (17:03→23:17)
[2024-05-29] MEDS: pantoprazole 40 mg SDV IVP (21:05)
[2024-05-29] MEDS: enoxaparin 40 mg/0.4 mL Syringe SUBCUT (21:05)
[2024-05-30 04:00] VITALS: BP 130/76; PULSE 83; RESP 16; TEMP 36.8; O2SAT 95
[2024-05-30 04:42] VITALS: RESP 16
[2024-05-30] MEDS: cyclobenzaprine 10 mg Tablet PO (04:42)
[2024-05-30] MEDS: oxyCODONE 5 mg IR Tab/Cap PO (04:42)
[2024-05-30] MEDS: diphenhydrAMINE 50 mg/mL SDV 1mL 25 MG IVP (05:58)
[2024-05-30 07:45] VITALS: BP 124/68; PULSE 62; RESP 18; TEMP 36.5; O2SAT 96
[2024-05-30 07:49] LABS: Basophils % 0.3 %; Eosinophils % 0.3 %; Hematocrit 37.5 % (36-47); Lymphocytes # 2.9 10^3/uL (0.8-4.8); Mean Corpuscular HGB Conc 32.8 g/dL (30-55); Mean Corpuscular Hemoglobin 29.5 pg (27-33); Mean Corpuscular Volume 89.9 fl (85-98); Mean Platelet Volume 9.7 fL (7.4-10.4); Monocytes # 0.6 10^3/uL (0.2-0.9); Monocytes % 7.6 %; Neutrophils # 3.85 10^3/uL (1.8-7.7); Neutrophils % 52.5 %; Nucleated Red Blood Cells % 0 %; Platelet Count 227 10^3/cmm (157-399); Red Blood Count 4.17 10^6/uL (3.85-5.65); Red Cell Distribution Width 12.4 % (12.1-15.1); White Blood Count 7.33 10^3/uL (3.29-11.43)
[2024-05-30 08:07] LABS: Blood Urea Nitrogen 12 mg/dL (8-23); Calcium 8.8 mg/dL (8.5-10.5); Carbon Dioxide 28 mmol/L (22-29); Chloride 106 mmol/L (98-107); Creatinine Clr Calc Pharmacy 59.9305; Glomerular Filtration Rate 62.6 mL/min (90-130); Glucose 88 mg/dL (65-115); Osmolality Calculated 293 mOsm/kg (285-295); Sodium 142 mmol/L (136-145)
[2024-05-30] MEDS: predniSONE 20 mg Tablet 40 MG PO (09:23)
[2024-05-30] MEDS: gabapentin 100 mg Capsule 200 MG PO (09:23)
[2024-05-30] MEDS: escitalopram 10 mg Tablet 20 MG PO (09:23)
[2024-05-30] MEDS: cefTRIAXone 1,000 mg SDV 1000 MG IVP (09:23)
[2024-05-30] MEDS: levothyroxine 112 mcg Tablet PO (09:23)
[2024-05-30] MEDS: ondansetron 2 mg/ML SDV 2 mL 4 MG IVP (11:07)
[2024-05-30 12:00] VITALS: BP 117/73; PULSE 69; RESP 18; TEMP 36.5; O2SAT 97
[2024-05-30 13:11] LABS: Estmated Average Glucose 114; Hemoglobin A1C 5.6 % (4.0-6.0)
--- NOTE | 2024-05-30 13:15 | P.DS_ITS ---
Discharge Providers Date of Admission: 05/27/24 18:38 Date of Discharge: May 30, 2024 Attending Provider at Admission: Lito Rodriguez MD Attending Provider at Discharge: Margarito López MD Primary Care Provider: Marko Medina DO Diagnoses at Discharge Discharge Diagnosis (1) Acute pyelonephritis: Status: Acute (2) Right-sided back pain: Status: Acute (3) RUSS (acute kidney injury): Status: Acute (4) Lumbar radiculopathy, acute: Status: Acute Reason for Visit Reason for Visit: severe abd pain Brief History: History as per HPI: Colleen Norton is a 64 year old female with a past medical history of recurrent UTIs, DVT, but has not had a UTI in over 2 years, history of hypothyroidism, who presents to [facility] due to right sided back pain, flank pain, right lower abdominal pain, right inguinal pain, right hip pain. Patient tells me that for the last few days she has had some fatigue and malaise, no fevers, but intermittent chills, no nausea, no vomiting, denies any dysuria, no hematuria. She tells me that yesterday she was mowing the lawn, when she hit a pothole and she felt a jarring sensation, on the right side of her hip, back, inguinal area but it did not really bother her she tells me. She tells me that she has been helping her family members around the house, helping with painting, so she has been taping the floor, and she has been getting up and down to tape, she tells me that this morning, when she got up she suddenly felt a severe pain sensation in her right hip, right side of her back, right flank, right inguinal region, right abdomen, did not radiate down her lower extremity, no paresthesias no urinary, no bowel incontinence no saddle paresthesia. But the pain was so severe, she is fearful of moving due to severe pain, potentially could be a muscle spasm. Currently she has received doses of morphine but continues to have severe pain primarily in the right hip, right inguinal region, right side of her back right flank, right lower abdomen. CT scan of abdomen pelvis no acute findings, UA with evidence of UTI, concerns for pyelonephritis with RUSS, hospitalist team was called for admissio. Hospital Course Hospital Course Patient was admitted to the hospital with concerns for possible UTI, acute kidney injury in setting of significant right-sided back pain. Kidney stones were ruled out with CT abdomen pelvis on admission. She was started on IV fluids and IV antibiotics. RUSS resolved with hydration. During hospitalization her cultures remained negative. Given concerns for significant back pain she underwent CT lumbar and hip which showed concerns for mild lumbar spondylosis with central canal narrowing at L4 and L5 region. She was started steroids given concern for significant pain and was seen by physical therapy. Patient showed gradual improvement. She has been discharged in hemodynamically stable condition on steroid taper, oral pain medication with advised to follow-up with her primary care provider and Dr. Borja as an outpatient within next 1 week. Physical Exam Const: COMMON NORMALS: no acute distress and patient oriented x3 HENMT: COMMON NORMALS: normocephalic HEAD & SCALP: normocephalic Eye: COMMON NORMALS: Equal, round and reactive pupils present PUPIL: Yes Equal, round and reactive pupils present Neck/C-Spine: COMMON NORMALS: no JVD Resp: COMMON NORMALS: normal respiratory effort, No retractions, No use of accessory muscles and clear to auscultation bilaterally AUSCULTATION: clear to auscultation bilaterally Cardio: COMMON NORMALS: no JVD, regular rate, regular rhythm, S1 normal heart sound present and S2 normal heart sound present RATE: regular rate RHYTHM: regular rhythm HEART SOUNDS: S1 normal heart sound present and S2 normal heart sound present GI: COMMON NORMALS: Normal to inspection, nondistended, normoactive bowel sounds present, Soft to palpation and non-tender PALPATION: Yes Soft to palpation Extremity: COMMON NORMALS: no pedal edema Neuro: COMMON NORMALS: patient oriented x3, CN's II-XII intact bilaterally and moves all extremities Psych: COMMON NORMALS: mental status grossly normal Discharge Data Studies Completed and Pending Completed Studies During Hospitalization Category Date Time Status CT abdomen pelvis w con* [id number] Stat Cat Scan 05/27/24 13:[address] hip RT wo con* [id number] Stat Cat Scan 05/27/24 17:[address] lumbar spine wo con* [id number] Stat Cat Scan 05/27/24 17:36 Completed US gall bladder [id number] Stat Ultrasound 05/27/24 14:02 Completed Pending at discharge Category Date Time Status B12 [Vitamin B12] Routine Lab 05/30/24 06:55 Received Blood Culture Stat Lab 05/27/24 17:34 Results Complete Blood Count w/Auto AM LABS Lab 05/31/24 04:00 Ordered Comprehensive Metabolic Panel AM LABS Lab 05/31/24 04:00 Ordered Folate Level AM LABS Lab 05/31/24 04:00 Ordered Free T4 Free Thyroxine Routine Lab 05/30/24 06:55 Received Lipid Profile w/VLDL Routine Lab 05/31/24 04:00 Ordered MAG [Magnesium] AM LABS Lab 05/31/24 04:00 Ordered MAG [Magnesium] AM LABS Lab 06/01/24 04:00 Ordered MAG [Magnesium] AM LABS Lab 06/02/24 04:00 Ordered Procalcitonin Routine Lab 05/30/24 06:55 Received T3 Free Routine Lab 05/30/24 06:55 Received TIBC [Total Iron Binding Capacity] Routine Lab 05/30/24 06:55 Received Radiology Impressions Abdomen/Pelvis CT 05/27/24 13:04 IMPRESSION: No acute findings. Gallbladder Ultrasound 05/27/24 14:02 IMPRESSION: 1. No acute findings. 2. Small gallbladder polyp. Hip CT 05/27/24 17:36 IMPRESSION: 1. Unremarkable appearance of the right hip. No evidence of a fracture, malalignment, aggressive lesion or significant degenerative change. Lumbar Spine CT 05/27/24 17:36 IMPRESSION: 1. Mild lumbar spondylosis. Small disc herniations posteriorly in the lower lumbar spine which are not well characterized by CT. Suggestion of central canal narrowing at L4-L5. If there are clinical radicular symptoms consider further evaluation with MRI. 2. No evidence of a lumbar spinal fracture, malalignment or aggressive osseous lesion. Laboratory Results WBC 7.33 10^3/uL (3.29-11.43) 05/30/24 06:55 RBC 4.17 10^6/uL (3.85-5.65) 05/30/24 06:55 Hgb 12.30 g/dL (11.27-16.99) 05/30/24 06:55 Hct 37.5 % (36-47) 05/30/24 06:55 MCV 89.9 fl (85-98) 05/30/24 06:55 MCH 29.5 pg (27-33) 05/30/24 06:55 MCHC 32.8 g/dL (30-55) 05/30/24 06:55 RDW 12.4 % (12.1-15.1) 05/30/24 06:55 Plt Count 227 10^3/cmm (157-399) 05/30/24 06:55 MPV 9.7 fL (7.4-10.4) 05/30/24 06:55 Neut % (Auto) 52.5 % 05/30/24 06:55 Lymph % (Auto) 39.0 % 05/30/24 06:55 [place] % (Auto) 7.6 % 05/30/24 06:55 Eos % (Auto) 0.3 % 05/30/24 06:55 Baso % (Auto) 0.3 % 05/30/24 06:55 Neut # (Auto) 3.85 10^3/uL (1.8-7.7) 05/30/24 06:55 Lymph # (Auto) 2.9 10^3/uL (0.8-4.8) 05/30/24 06:55 [place] # (Auto) 0.6 10^3/uL (0.2-0.9) 05/30/24 06:55 Eos # (Auto) 0.0 10^3/uL (0.0-0.8) 05/30/24 06:55 Baso # (Auto) 0.0 10^3/uL (0.0-0.1) 05/30/24 06:55 Nucleated RBC % (auto) 0 % 05/30/24 06:55 Nucleated RBCs # 0.0 /100WBC 05/30/24 06:55 ESR 18 mm/hr (0-15) H 05/27/24 13:23 PT 14.10 SECONDS (12.1-14.9) 05/29/24 12:22 INR 1.06 (0.8-1.2) 05/29/24 12:22 Sodium 142 mmol/L (136-145) 05/30/24 06:55 Potassium 4.0 mmol/L (3.5-5.1) 05/30/24 06:55 Chloride 106 mmol/L (98-107) 05/30/24 06:55 Carbon Dioxide 28 mmol/L (22-29) 05/30/24 06:55 Anion Gap 12.0 (5-19) 05/30/24 06:55 BUN 12 mg/dL (8-23) 05/30/24 06:55 Creatinine 0.9 mg/dL (0.5-0.9) 05/30/24 06:55 GFR Calculation 62.6 mL/min (90-130) L 05/30/24 06:55 Glucose 88 mg/dL (65-115) 05/30/24 06:55 Estimat Average Glucose 114 05/30/24 06:55 Hemoglobin A1c 5.6 % (4.0-6.0) 05/30/24 06:55 Calculated Osmolality 293 mOsm/kg (285-295) 05/30/24 06:55 Lactic Acid 0.9 mmol/L (0.5-2.2) 05/27/24 13:23 Calcium 8.8 mg/dL (8.5-10.5) 05/30/24 06:55 Total Bilirubin 0.3 mg/dL (0.15-1.2) 05/27/24 13:23 AST 16 U/L (0-32) 05/27/24 13:23 ALT 8 U/L (0-33) 05/27/24 13:23 Alkaline Phosphatase 75 U/L (35-105) 05/27/24 13:23 Creatine Kinase 45 U/L (26-192) 05/27/24 13:23 C-Reactive Protein 3.0 mg/L (0.0-4.9) 05/27/24 13:23 Total Protein 7.0 g/dL (6.6-8.7) 05/27/24 13:23 Albumin 4.3 g/dL (3.5-5.2) 05/27/24 13:23 Globulin 2.7 g/dL (1.3-4.6) 05/27/24 13:23 Lipase 34 U/L (13-60) 05/27/24 13:23 Procalcitonin 0.08 ng/mL (0-0.5) 05/27/24 13:23 TSH 0.16 uIU/mL (0.27-4.20) L 05/27/24 13:23 Urine Color Yellow (Yellow) 05/27/24 15:55 Urine Appearance Clear (CLEAR) 05/27/24 15:55 Urine pH 5.5 (5-7) 05/27/24 15:55 Ur Specific [place] 1.073 (1.005-1.030) H 05/27/24 15:55 Urine Protein Negative (Negative) 05/27/24 15:55 Urine Glucose (UA) Negative (Normal) 05/27/24 15:55 Urine Ketones 1+ (Negative) H 05/27/24 15:55 Urine Blood 1+ (Negative) A 05/27/24 15:55 Urine Nitrate Negative (Negative) 05/27/24 15:55 Urine Bilirubin Negative (Negative) 05/27/24 15:55 Urine Urobilinogen 1.0 mg/dL (Negative) 05/27/24 15:55 Ur Leukocyte Esterase 1+ (Negative) A 05/27/24 15:55 Urine RBC 3-5 /hpf (0-2) 05/27/24 15:55 Urine WBC 51-100 /hpf (0-5) H 05/27/24 15:55 Ur Squamous Epith Cells 0-5 /hpf (0-5) 05/27/24 15:55 Amorphous Sediment Not Reportable 05/27/24 15:55 Urine Bacteria None seen /hpf (NONE) 05/27/24 15:55 Hyaline Casts 6.20 /lpf 05/27/24 15:55 Vitals Last Vital Signs Temp 97.7 F 05/30/24 12:00 Pulse 69 05/30/24 12:00 Resp 18 05/30/24 12:00 BP 117/73 05/30/24 12:00 Pulse Ox 97 05/30/24 12:00 O2 Del Method Room Air 05/30/24 12:00 Discharge Plan Discharge Patient Disposition: Home Condition: Stable Prescriptions: New gabapentin 100 mg Capsule 200 mg PO TID 30 Days Qty: 180 0RF oxycodone 5 mg Tablet 5 mg PO Q6H PRN (Reason: Moderate Pain) Qty: 20 0RF dexamethasone 6 mg tablet See Rx Instructions .ROUTE .COMPLEX Qty: 20 0RF Rx Instructions: Every 6 hours for 2 days f/b 3 times daily for 2 days f/b twice daily for 2 days f/bdaily for 2 days then stop Continued metronidazole 0.75 % cream 1 applic topical DAILY triamcinolone acetonide 0.1 % cream 1 applic topical BID Qty: 30 1RF escitalopram oxalate 20 mg tablet 20 mg PO DAILY Qty: 30 1RF ondansetron HCl 4 mg tablet 4 mg PO Q8H PRN (Reason: nausea and vomiting) Qty: 30 1RF mecobalamin (vitamin B12) 1,000 mcg tablet,chewable 1,000 mcg PO DAILY Qty: 90 0RF cyclobenzaprine 10 mg tablet 10 mg PO TID PRN (Reason: muscle spasm) Qty: 30 0RF levothyroxine 112 mcg capsule 112 mcg PO DAILY Qty: 30 3RF Discharge Orders: Discharge Order (Routine); Ordered 05/30/24 Ordered By: Margarito López Referrals: Flakito Schaefer DO [Physician] - 7-10 days (We have notified your physician's clinic of the need for a follow-up appointment to be scheduled. If you have not heard from them within the next 2 business days, please call them directly. ) Marko Medina DO [Primary Care Provider] - 06/06/24 12:40 pm Discharge Diet: Cardiac Discharge Activity: Resume usual activity and Increase activity as tolerated Patient Instructions: Oxycodone/Acetaminophen (By mouth), Gabapentin (By mouth), Dexamethasone (By mouth), Acute Kidney Injury (GEN), Urinary Tract Infection in Women (GEN), Lumbar Radiculopathy (GEN), Opioid Safety Discharge Attestations Time Spent in Discharge Care*: greater than 30 min Specific Discharge Activities: educating patient, educating and/or supporting family/caregiver, discussing with pcp/other providers, discussing with home health care case manager/social workers/dc planners, documenting/other paperwork and evaluating patient/reviewing data Status at Discharge: Cognitive status at discharge: cognitively intact , Behavioral status at discharge: cooperative , Functional status at discharge: uses cane/walker , Overall status at discharge: patient is back to baseline Quality Metrics Clinical Quality Measures [ No reported AMI, CVA or VTE this stay] Coding Level of Care Code 90666 Total time (in minutes) for Discharge: 50 Diagnoses Acute pyelonephritis N10 Right-sided back pain M54.9 RUSS (acute kidney injury) N17.9 Lumbar radiculopathy, acute M54.16
[2024-05-30 13:24] LABS: Procalcitonin 0.05 ng/mL (0-0.5); Vitamin B12 485 pg/mL (232-1245)
[2024-05-30 13:35] LABS: Iron 98 ug/dL (37-145); Percent Saturation 39.2 % (20-50); Total Iron Binding Capacity 250 mcg/dl; Unsaturated Iron Binding 152 ug/dL (112-347)
--- NOTE | 2024-05-30 14:32 | PC.OT ---
OT EVALUATION ORDERS RECEIVED; PER NURSING: PATIENT IS AMBULATING IN HER ROOM AND PERFORMING ALL ADLS CHERYL. NO NEED FOR SKILLED OT SERVICES
[2024-05-30 14:42] LABS: T3 Free 1.7 PG/ML (2.0-4.4)
[2024-05-30 14:44] VITALS: BP 117/73; PULSE 69; RESP 18; TEMP 36.5; O2SAT 97
--- NOTE | 2024-05-30 15:57 | PC.SOCIAL ---
IMM Update pg 2 of IMM Updated and reviewed w/ patient. Copy provided and copy dated, initialed and placed in chart.
== END 2024-05-30 14:45 | disposition home or self-care (01) | DRG 690 ==
LOC: ER 17:25 → MEDSURG 18:38
PROVIDERS: Emergency Medicine; Admitting Provider Family Medicine; Emergency Provider Family Medicine; PCP Family Medicine; Visit Provider Student in an Organized Health Care Education/Training Program
DX: N10 Acute pyelonephritis (principal); E03.9 Hypothyroidism, unspecified; I34.0 Nonrheumatic mitral (valve) insufficiency; R91.1 Solitary pulmonary nodule; J43.9 Emphysema, unspecified; N17.9 Acute kidney failure, unspecified; M54.16 Radiculopathy, lumbar region; M25.551 Pain in right hip; Z87.440 Personal history of urinary (tract) infections; Z86.718 Personal history of other venous thrombosis and embolism
CPT/HCPCS: 36415; 72131; 73700; 74177; 76705; 80048; 80053; 81001; 82550; 82607; 83036; 83540; 83550; 83605; 83690; 84145; 84439; 84443; 84481; 85025; 85610; 85651; 86140; 87040; 87086; 93005; 94664; 96372; 96374; 96375; 97161; 99285; J0696; J1100; J1170; J1200; J1650; J1885; J2270; J2405; J2470; J2543; J7030; J7512

== ENCOUNTER → 2024-06-07 13:32 | Outpatient (BNVA) | payer SELFPAY | PROVIDERS: PCP Family Medicine; Referring Provider Student in an Organized Health Care Education/Training Program; Visit Provider Orthopaedic Surgery | DX: M54.16 Radiculopathy, lumbar region (principal) | CPT/HCPCS: 72110 ==

== ENCOUNTER → 2024-09-29 08:53 | Outpatient (BNVA) | payer MEDICARE, SELFPAY | PROVIDERS: PCP Family Medicine; Visit Provider Family Medicine | DX: E03.9 Hypothyroidism, unspecified (principal); R25.1 Tremor, unspecified; R63.1 Polydipsia; R35.0 Frequency of micturition; J43.9 Emphysema, unspecified; E16.2 Hypoglycemia, unspecified | CPT/HCPCS: 80053; 83036; 84439; 84443; 84481; 85025 ==

== ENCOUNTER 2025-07-06 10:22 | Outpatient (CLI) | payer SELFPAY ==
--- NOTE | 2025-07-06 10:30 | MM_ITS ---
WS: [id number] BILATERAL 3D TOMOSYNTHESIS DIGITAL DIAGNOSTIC MAMMOGRAPHY WITH CAD CLINICAL INFORMATION: breast mass, right HISTORY: RIGHT breast mass COMPARISON: 2021 TECHNIQUE: Bilateral CC, MLO, and ML views. FINDINGS: The breasts are composed of heterogeneous fibroglandular density, which can limit the detection of small underlying mass lesions. Palpable marker along the RIGHT axillary tail. No visualized parenchymal abnormalities in this area. Ultrasound described below. ULTRASOUND BREAST RIGHT TECHNIQUE: Ultrasound right breast focused area of concern. CLINICAL INFORMATION: breast mass, right FINDINGS: Ultrasound RIGHT breast the 10 o'clock position axillary tail. There is a normal-appearing lymph node at the 10 o'clock position measuring 1.3 x 1.5 x 0.6 cm with normal fatty hilum. No other suspicious findings in the area of concern. This has a benign appearance. Recommend return to annual screening mammography. MM/MM diag BI tomosynthesis [id number] IMPRESSION: DENSITY: There are scattered areas of fibroglandular density. BI-RADS: 2 - Benign. FOLLOW UP: 1 Year Follow-up Recommend return to annual screening mammography.
== END 2025-07-06 10:23 | disposition home or self-care (01) ==
LOC: RAD 10:23
PROVIDERS: PCP Family Medicine; Visit Provider Family Medicine
DX: N63.31 Unspecified lump in axillary tail of the right breast (principal); R92.331 Mammographic heterogeneous density, right breast; R92.322 Mammographic fibroglandular density, left breast
CPT/HCPCS: 76642; 77062; G0279